=== PATIENT | male | born 1950 | race Caucasian/White ===

== ENCOUNTER → 2016-07-30 | Outpatient (CLI) | payer OTHER ==
--- NOTE | 2016-07-30 15:46 | US ---
EXAMINATION TYPE: US carotid duplex BILAT DATE OF EXAM: 07/30/2016 2:59 PM COMPARISON: Prior carotid ultrasound December 18, 2015 CLINICAL HISTORY: I50.9 CONGESTIVE HEART FAILURE. Stroke EXAM MEASUREMENTS: RIGHT: Peak Systolic Velocity (PSV) cm/sec ----- Right CCA: 61.6 ----- Right ICA: 96.5 ----- Right ECA: 100.6 ICA/CCA ratio: 1.6 RIGHT: End Diastole cm/sec ----- Right CCA: 12.7 ----- Right ICA: 27.1 ----- Right ECA: 11.3 LEFT: Peak Systolic Velocity (PSV) cm/sec ----- Left CCA: 65.0 ----- Left ICA: 100.9 ----- Left ECA: 196.5 ICA/CCA ratio: 1.6 LEFT: End Diastole cm/sec ----- Left CCA: 18.7 ----- Left ICA: 39.3 ----- Left ECA: 28.9 VERTEBRALS (direction of flow): Right Vertebral: Antegrade Left Vertebral: Antegrade TECHNOLOGIST IMPRESSION: Mild heterogeneous plaque seen with no significant stenosis Grayscale images redemonstrate mild to moderate eccentric hyperechoic plaque at bilateral carotid bul bs similar to prior exam, right more pronounced than left. Velocity measurements and ratios in visual ized portion of both internal carotid arteries is within normal limits. Increased peak systolic veloc ity left external carotid artery is redemonstrated. IMPRESSION: Mild to moderate atherosclerotic change redemonstrated bilaterally, no hemodynamically s ignificant stenosis is clearly seen in either internal carotid artery. No significant change from denise or ultrasound noted.
== END | disposition home or self-care (01) ==
LOC: RADUSWWP 14:27
PROVIDERS: ATTEND Family Medicine
DX: I65.23 Occlusion and stenosis of bilateral carotid arteries (principal)
CPT/HCPCS: 93880

== ENCOUNTER → 2017-02-11 | Outpatient (CLI) | payer MEDICARE, OTHER ==
[~2017-02-11] MED LIST: REGADENOSON 0.4 MG/5 ML SYRINGE IV ONE
--- NOTE | 2017-02-11 12:16 | NM ---
EXAMINATION TYPE: NM stress lexiscan cardiolite DATE OF EXAM: 02/11/2017 COMPARISON: NONE HISTORY: Precordial chest pain and abnormal EKG TECHNIQUE: After the intravenous administration of 10.2 mCi Tc 99m Sestamibi - Cardiolite resting SP ECT images acquired 53 minutes post injection. The patient received 0.4mg Lexiscan, 29.1 mCi Tc 99m Sestamibi - Stress images obtained [address] injection FINDINGS: Review of stress and rest SPECT images demonstrates moderate sized area of fixed defect cardiac apex compatible with prior ischemic insult. There is decreased perfusion involving the inferior wall which may be related to attenuation artifact or prior insult. No definite stress-induced ischemia seen at this time. Three-dimensional gated wall motion analysis demonstrates apical akinesia. Estimated eject ion fraction 40%. IMPRESSION: 1. Fixed insult as noted without evidence for stress-induced ischemia.
--- NOTE | 2017-02-11 19:52 | ECHOF ---
Referral Reason:R94.31 abn ekg MEASUREMENTS -------- HEIGHT: 177.8 cm WEIGHT: 64.4 kg BP: 158/72 RVIDd: 1.9 cm (< 3.3) IVSd: 0.9 cm (0.6 - 1.1) LVIDd: 5.3 cm (3.9 - 5.3) LVPWd: 1.0 cm (0.6 - 1.1) IVSs: 1.3 cm LVIDs: 3.9 cm LVPWs: 1.3 cm LAESV Index (A-L): 18.13 ml/m Ao Diam: 3.2 cm (2.0 - 3.7) AV Cusp: 2.0 cm (1.5 - 2.6) LA Diam: 3.1 cm (2.7 - 3.8) MV EXCURSION: 19.436 mm (> 18.000) MV EF SLOPE: 148 mm/s (70 - 150) EPSS: 2.0 cm MV E Wallace: 0.88 m/s MV DecT: 215 ms MV A Wallace: 0.97 m/s MV E/A Ratio: 0.90 RAP: 5.00 mmHg RVSP: 9.06 mmHg FINDINGS -------- Resting bradycardia (HR<60bpm). This was a technically adequate study. Overall left ventricular systolic function is mild-moderately impaired with, an EF between 40 - 45 %. Apical lateral LV wall motion is hypokinetic. Apical inferior LV wall motion is hypokinetic. Apical septum LV wall motion is hypokinetic. [place] Hypokinesis. Aortic valve is trileaflet and is mildly thickened. There is no evidence of aortic regurgitation. There is no evidence of aortic stenosis. The mitral valve leaflets are mildly thickened. Mild mitral annular calcification present. There is trace to mild mitral regurgitation. Trace tricuspid regurgitation present. There is no evidence of pulmonary hypertension. The right ventricular systolic pressure, as measured by Doppler, is 9.06mmHg. The pulmonic valve was not well visualized. The aortic root size is normal. The inferior vena cava is dilated with no significant inspiratory collapse which is consistent estimated right atrial pressure of >20 mmHg. The pericardium is normal. There is no pericardial effusion. CONCLUSIONS -------- 1. Resting bradycardia (HR<60bpm). 2. Mild mitral annular calcification present. 3. There is trace to mild mitral regurgitation. 4. Trace tricuspid regurgitation present. 5. There is no evidence of pulmonary hypertension. 6. The right ventricular systolic pressure, as measured by Doppler, is 9.06mmHg. 7. The pulmonic valve was not well visualized. 8. The aortic root size is normal. 9. The inferior vena cava is dilated with no significant inspiratory collapse which is consistent estimated right atrial pressure of >20 mmHg. 10. There is no pericardial effusion. 11. This was a technically adequate study. 12. Overall left ventricular systolic function is mild-moderately impaired with, an EF between 40 - 45 %. 13. Apical lateral LV wall motion is hypokinetic. 14. Apical inferior LV wall motion is hypokinetic. 15. Apical septum LV wall motion is hypokinetic. 16. [place] Hypokinesis. 17. Aortic valve is trileaflet and is mildly thickened. 18. The mitral valve leaflets are mildly thickened. POWER BALLAST MACHINE OPERATOR: Da Ahuja RDCS
--- NOTE | 2017-02-12 06:27 | EST ---
DATE OF SERVICE: TYPE OF REPORT: Lexiscan Cardiolite stress test INDICATION: Pre-eye surgery. BASELINE HEART RATE: 59 BASELINE BLOOD PRESSURE: 136/79 MAXIMUM HEART RATE: 84 MAXIMUM BLOOD PRESSURE: 141/92 85% MPHR: 100% MPHR: METS: MAX STAGE REACHED: TOTAL EXERCISE TIME: The test is being done to evaluate cardiac status. STRESS DATA: Baseline EKG showed sinus rhythm with normal CO interval and QRS duration with poor R wave progression in the anterior leads. Blood pressure at rest is 136/79 with a pulse rate of 59. A standard dose of Lexiscan was infused. EKGs taken during and after the infusion did not reveal any significant changes from the baseline. FINAL IMPRESSION: 1. Negative Lexiscan stress test. 2. Report on the nuclear images to be given by the radiologist. ALEXD
== END | disposition home or self-care (01) ==
LOC: RADNMMAIN 01-21 07:36
PROVIDERS: ATTEND Family Medicine
DX: R94.31 Abnormal electrocardiogram [ECG] [EKG] (principal)
CPT/HCPCS: 93017; 93306; 78452; A9500; J2785

== ENCOUNTER 2021-01-30 14:43 | Inpatient (IN) | payer MEDICARE ==
[2021-01-30] MEDS ORDERED: VANCOMYCIN IV PER PHARMACY 1 EACH MISC MISCELLANE PRN (15:09)
[2021-01-30] MEDS ORDERED: PIPERACILLIN-TAZOBACTAM 3.375 GM in SODIUM CHLORIDE 0.9% 100 ML IVPB STA (15:09)
[2021-01-30] MEDS ORDERED: ACETAMINOPHEN TAB 500 MG TAB PO STA (15:11)
[2021-01-30] MEDS ORDERED: IBUPROFEN 600 MG TAB PO STA (15:11)
--- NOTE | 2021-01-30 15:15 | ED ---
General Adult HPI - General Chief complaint: Extremity Injury, Lower Stated complaint: foot infection Time Seen by Provider: 01/30/21 14:50 Source: patient, RN notes reviewed, old records reviewed Mode of arrival: EMS Limitations: altered mental status, physical limitation - History of Present Illness Initial comments: This is a 71-year-old male who presents emergency complaining that he thinks he has infection in his right foot. Patient states about 5 days ago he had his big toe amputated and he eventually left the hospital AMA and went home. However he called his doctor and told him what was going on and his doctor wanted him to get back to the hospital immediately but he refused to go to [facility]. Patient states he does have a low-grade fever and the pain is getting worse. Patient states he has not looked at the amputated toe since the surgery. Patient denies any other problems at this time. Patient denies any headache patient denies any cough. Patient denies any chest pain difficulty breathing shortest breath per patient denies abdominal pain patient denies nausea vomiting diarrhea. Patient's main complaint is pain in the foot and a low-grade fever - Related Data Home Medications Medication Instructions Recorded Confirmed Gabapentin [Neurontin] 400 mg PO HS 03/28/16 03/28/16 lisinopriL [Zestril] 5 mg PO HS 03/28/16 03/28/16 metFORMIN HCL [Glucophage] 2,000 mg PO HS 03/28/16 03/28/16 Allergies Allergy/AdvReac Type Severity Reaction Status Date / Time No Known Allergies Allergy Verified 01/30/21 15:01 Review of Systems ROS Statement: Those systems with pertinent positive or pertinent negative responses have been documented in the HPI. ROS Other: All systems not noted in ROS Statement are negative. Past Medical History Past Medical History: CVA/TIA, Diabetes Mellitus Additional Past Medical History / Comment(s): neuropathy, TB 30 years ago, History of Any Multi-Drug Resistant Organisms: None Reported Past Surgical History: Appendectomy Additional Past Surgical History / Comment(s): fusion, right great toe am putation, Past Anesthesia/Blood Transfusion Reactions: No Reported Reaction Past Psychological History: Anxiety, Depression Smoking Status: Current every day smoker Past Alcohol Use History: None Reported Past Drug Use History: None Reported General Exam - General Exam Comments Initial Comments: GENERAL: Patient is well-developed and well-nourished. Patient is nontoxic and well- hydrated and is in mild distress. ENT: Neck is soft and supple. No significant lymphadenopathy is noted. Oropharynx is clear. Moist mucous membranes. Neck has full range of motion without eliciting any pain. EYES: The sclera were anicteric and conjunctiva were pink and moist. Extraocular movements were intact and pupils were equal round and reactive to light. Eyelids were unremarkable. PULMONARY: Unlabored respirations. Good breath sounds bilaterally. No audible rales rhonchi or wheezing was noted. CARDIOVASCULAR: There is a regular rate and rhythm without any murmurs gallops or rubs. ABDOMEN: Soft and nontender with normal bowel sounds. SKIN: Skin is clear with no lesions or rashes and otherwise unremarkable. NEUROLOGIC: Patient is alert and oriented x3. Cranial nerves II through XII are grossly intact. Motor and sensory are also intact. Normal speech, volume and content. Symmetrical smile. MUSCULOSKELETAL: Right foot is very erythematous warm and painful to touch the wound is swollen and not healing over. LYMPHATICS: No significant lymphadenopathy is noted PSYCHIATRIC: Normal psychiatric evaluation. Limitations: altered mental status, physical limitation Course Vital Signs 01/30/21 01/30/21 14:49 15:50 Temperature 100.6 F H Pulse Rate 94 93 Respiratory 18 18 Rate Blood Pressure 178/82 175/83 O2 Sat by Pulse 98 98 Oximetry Medical Decision Making - Medical Decision Making EKG shows normal sinus rhythm at 97 bpm CA interval is 142 QRS is 94 QT interval 350 QTC is 454. Patient's EKG shows no ST segment elevation or depression. X-ray of the foot cannot rule out possible it's. I started the patient Zosyn and vancomycin. I spoke with Dr. Royal Mendoza he agreed to admit the patient admitted the patient I wrote admitting orders I consulted Dr. Galloway he did surgery. - Lab Data Result diagrams: 01/30/21 15:19 01/30/21 15:19 Lab Results 01/30/21 01/30/21 01/30/21 Range/Units 15:19 15:19 15:19 WBC 9.9 (3.8-10.6) k/uL RBC 4.29 L (4.30-5.90) m/uL Hgb 11.9 L (13.0-17.5) gm/dL Hct 37.2 L (39.0-53.0) % MCV 86.8 (80.0-100.0) fL MCH 27.8 (25.0-35.0) pg MCHC 32.0 (31.0-37.0) g/dL RDW 13.3 (11.5-15.5) % Plt Count 301 (150-450) k/uL MPV 7.0 Neutrophils % 84 % Lymphocytes % 8 % Monocytes % 6 % Eosinophils % 0 % Basophils % 1 % Neutrophils # 8.3 H (1.3-7.7) k/uL Lymphocytes # 0.8 L (1.0-4.8) k/uL Monocytes # 0.6 (0-1.0) k/uL Eosinophils # 0.0 (0-0.7) k/uL Basophils # 0.1 (0-0.2) k/uL PT 10.7 (9.0-12.0) sec INR 1.0 (<1.2) APTT 23.8 (22.0-30.0) sec Sodium (137-145) mmol/L Potassium (3.5-5.1) mmol/L Chloride (98-107) mmol/L Carbon Dioxide (22-30) mmol/L Anion Gap mmol/L BUN (9-20) mg/dL Creatinine (0.66-1.25) mg/dL Est GFR (CKD-EPI)AfAm (>60 ml/min/1.73 sqM) Est GFR (CKD-EPI)NonAf (>60 ml/min/1.73 sqM) Glucose (74-99) mg/dL Plasma Lactic Acid Jarred (0.7-2.0) mmol/L Calcium (8.4-10.2) mg/dL Total Bilirubin (0.2-1.3) mg/dL AST (17-59) U/L ALT (4-49) U/L Alkaline Phosphatase (38-126) U/L Total Protein (6.3-8.2) g/dL Albumin (3.5-5.0) g/dL Urine Color Yellow Urine Appearance Clear (Clear) Urine pH 5.0 (5.0-8.0) Ur Specific [place] 1.010 (1.001-1.035) Urine Protein Trace H (Negative) Urine Glucose (UA) Negative (Negative) Urine Ketones 2+ H (Negative) Urine Blood Trace H (Negative) Urine Nitrite Negative (Negative) Urine Bilirubin Negative (Negative) Urine Urobilinogen <2.0 (<2.0) mg/dL Ur Leukocyte Esterase Negative (Negative) Urine RBC 1 (0-5) /hpf Urine WBC 1 (0-5) /hpf Ur Squamous Epith Cells <1 (0-4) /hpf Urine Mucus Rare H (None) /hpf 01/30/21 01/30/21 Range/Units 15:19 15:19 WBC (3.8-10.6) k/uL RBC (4.30-5.90) m/uL Hgb (13.0-17.5) gm/dL Hct (39.0-53.0) % MCV (80.0-100.0) fL MCH (25.0-35.0) pg MCHC (31.0-37.0) g/dL RDW (11.5-15.5) % Plt Count (150-450) k/uL MPV Neutrophils % % Lymphocytes % % Monocytes % % Eosinophils % % Basophils % % Neutrophils # (1.3-7.7) k/uL Lymphocytes # (1.0-4.8) k/uL Monocytes # (0-1.0) k/uL Eosinophils # (0-0.7) k/uL Basophils # (0-0.2) k/uL PT (9.0-12.0) sec INR (<1.2) APTT (22.0-30.0) sec Sodium 141 (137-145) mmol/L Potassium 3.7 (3.5-5.1) mmol/L Chloride 108 H (98-107) mmol/L Carbon Dioxide 23 (22-30) mmol/L Anion Gap 10 mmol/L BUN 10 (9-20) mg/dL Creatinine 1.09 (0.66-1.25) mg/dL Est GFR (CKD-EPI)AfAm 80 (>60 ml/min/1.73 sqM) Est GFR (CKD-EPI)NonAf 69 (>60 ml/min/1.73 sqM) Glucose 141 H (74-99) mg/dL Plasma Lactic Acid Jarred 0.9 (0.7-2.0) mmol/L Calcium 8.7 (8.4-10.2) mg/dL Total Bilirubin 0.7 (0.2-1.3) mg/dL AST 35 (17-59) U/L ALT 17 (4-49) U/L Alkaline Phosphatase 76 (38-126) U/L Total Protein 6.7 (6.3-8.2) g/dL Albumin 3.3 L (3.5-5.0) g/dL Urine Color Urine Appearance (Clear) Urine pH (5.0-8.0) Ur Specific [place] (1.001-1.035) Urine Protein (Negative) Urine Glucose (UA) (Negative) Urine Ketones (Negative) Urine Blood (Negative) Urine Nitrite (Negative) Urine Bilirubin (Negative) Urine Urobilinogen (<2.0) mg/dL Ur Leukocyte Esterase (Negative) Urine RBC (0-5) /hpf Urine WBC (0-5) /hpf Ur Squamous Epith Cells (0-4) /hpf Urine Mucus (None) /hpf Disposition Clinical Impression: Postoperative infection, Cellulitis of foot Disposition: ADMITTED IP TO THIS HOSP Referrals: Royal Mendoza MD [Primary Care Provider] - 1-2 days Time of Disposition: 16:18
[2021-01-30] MEDS: SODIUM CHLORIDE 0.9% 500 ML 500 ML IV SCH ×2 (15:16→17:24)
[2021-01-30] MEDS ORDERED: VANCOMYCIN 1,500 MG in SODIUM CHLORIDE 0.9% 250 ML IVPB STA (15:16)
[2021-01-30 15:36] LABS: Basophils # (A) 0.1 k/uL (0-0.2); Basophils % (A) 1 %; Eosinophils % (A) 0 %; HCT 37.2 % (39.0-53.0); HGB 11.9 gm/dL (13.0-17.5); Lymphocytes # (A) 0.8 k/uL (1.0-4.8); Lymphocytes % (A) 8 %; MCH 27.8 pg (25.0-35.0); MCV 86.8 fL (80.0-100.0); Monocytes # (A) 0.6 k/uL (0-1.0); Monocytes % (A) 6 %; Neutrophils # (A) 8.3 k/uL (1.3-7.7); Neutrophils % (A) 84 %; Platelet Count 301 k/uL (150-450); RBC 4.29 m/uL (4.30-5.90); RDW 13.3 % (11.5-15.5); WBC 9.9 k/uL (3.8-10.6)
[2021-01-30 15:39] LABS: Appearance,Urine Clear (Clear); Bilirubin,Urine Negative (Negative); Blood,Urine Trace (Negative); Color,Urine Yellow; Glucose,Urine (UA) Negative (Negative); Ketones,Urine 2+ (Negative); Leukocyte Esterase,Urine Negative (Negative); Mucus,Urine Rare /hpf; Nitrite,Urine Negative (Negative); Protein,Urine Trace (Negative); RBC,Urine 1 /hpf (0-5); Squamous Epithelial Cell,Urine <1 /hpf (0-4); Urobilinogen,Urine <2.0 mg/dL (<2.0); WBC,Urine 1 /hpf (0-5)
[2021-01-30 15:49] LABS: Albumin 3.3 g/dL (3.5-5.0); Calcium 8.7 mg/dL (8.4-10.2); Potassium 3.7 mmol/L (3.5-5.1); Total Bilirubin 0.7 mg/dL (0.2-1.3); Total Protein 6.7 g/dL (6.3-8.2)
--- NOTE | 2021-01-30 16:01 | XR ---
EXAMINATION TYPE: XR foot complete RT DATE OF EXAM: 01/30/2021 COMPARISON: NONE HISTORY: Right foot pain and swelling TECHNIQUE: Three views are submitted. FINDINGS: There is amputation of portions of the right first digit. Soft tissue edema noted in a slight ill-def inition of the medial cortex of the metatarsal head. Assessment of the distal margins of the remaining digits Limited due to positioning. Plantar calcanea l spur noted. No definite acute fracture or dislocation. Pression: 1. Soft tissue edema correlate for cellulitis. Early osteomyelitis involving the head of the first me tatarsal in the differential diagnosis.
[2021-01-30 16:02] LABS: Partial Thromboplastin Time 23.8 sec (22.0-30.0); Prothrombin Time 10.7 sec (9.0-12.0)
[2021-01-30] MEDS ORDERED: SODIUM CHLORIDE 0.9% 1,000 ML IV ONE (16:26)
[2021-01-30] MEDS ORDERED: lisinopriL 10 MG TAB PO STA (16:53)
[2021-01-30 20:31] LABS: Glucose,Whole Blood 140 mg/dL (75-99)
[2021-01-30 22:53] LABS: Glucose,Whole Blood 130 mg/dL (75-99)
[2021-01-31] MEDS: PIPERACILLIN-TAZOBACTAM 3.375 GM in SODIUM CHLORIDE 0.9% 100 ML IVPB SCH ×4 (00:03→23:25)
[2021-01-31] MEDS: ATORVASTATIN 40 MG TAB PO SCH ×2 (00:03→21:13)
[2021-01-31 01:06] LABS: Hemoglobin A1C 8.5 % (4.0-6.0)
[2021-01-31] MEDS: VANCOMYCIN 1,500 MG in SODIUM CHLORIDE 0.9% 250 ML IVPB SCH ×2 (04:56→17:25)
--- NOTE | 2021-01-31 06:08 | HP ---
HISTORY AND PHYSICAL HISTORY OF PRESENT ILLNESS: 71-year-old white male status post great toe amputation of the right foot. He signed out AMA from other hospital 2 days ago. He was supposed to get a PICC line with IV antibiotics. He has an open wound to the distal toe base site for where he had the amputation. His entire foot is red, swollen and warm. He needs to get a PICC line to get IV antibiotics going. IV antibiotics for about 4 to 6 weeks of physical therapy and medical conditioning at home or skilled nursing. Suspect he should go to a skilled nursing for care of his wound until it heals with a PICC line. MEDICATIONS: Home medicines: Neurontin 400 at night, Zestril 5 mg at night, metformin 2000 daily. ALLERGIES: Negative. REVIEW OF SYMPTOMS: 14 point review of systems negative except for mentioned in HPI. PAST MEDICAL HISTORY: CVA, TIA, diabetes mellitus, neuropathy. SURGERIES: Appendectomy, right great toe amputation, fusion. Anxiety, depression. SOCIAL HISTORY: Everyday smoker. No alcohol. No drugs. PHYSICAL EXAMINATION: Vital signs stable, afebrile. PSYCH: Fair mood and affect. NEUROLOGIC: Alert and orient x3. CARDIOVASCULAR: S1, S2. LUNGS: Clear. GI soft. Left foot great toe is removed. The base of the toe has a mild opening yellow exudative area on the distal base of the great toe. Has redness and swelling to the distal foot wound to the mid foot. HEMATOLOGY: Negative Homans. LABORATORY DATA: White count 9.9, hemoglobin is 9.9, BUN 10, creatinine 1.09, albumin is 3.3. ASSESSMENT: Postoperative infection, cellulitis of the foot, open wound to the distal stump of the great toe base, cellulitis. PROGNOSIS: Guarded. CONDITION: Stable. Ambulate as tolerated. He will need a PICC line and home IV antibiotics for [address] Silva consult as well as vascular. MMODL / IJN: [id number] /
[2021-01-31 07:21] LABS: Glucose,Whole Blood 170 mg/dL (75-99)
[2021-01-31 07:52] LABS: Basophils # (A) 0.1 k/uL (0-0.2); Basophils % (A) 1 %; Eosinophils # (A) 0.2 k/uL (0-0.7); Eosinophils % (A) 2 %; HCT 37.2 % (39.0-53.0); HGB 11.8 gm/dL (13.0-17.5); Lymphocytes % (A) 13 %; MCH 28.1 pg (25.0-35.0); MCHC 31.7 g/dL (31.0-37.0); MCV 88.7 fL (80.0-100.0); Mean Platelet Volume 7.5; Monocytes # (A) 0.6 k/uL (0-1.0); Monocytes % (A) 7 %; Neutrophils # (A) 6.2 k/uL (1.3-7.7); Neutrophils % (A) 76 %; Platelet Count 307 k/uL (150-450); RDW 13.5 % (11.5-15.5); WBC 8.2 k/uL (3.8-10.6)
[2021-01-31] MEDS: lisinopriL 10 MG TAB PO SCH ×2 (08:05→21:14)
[2021-01-31 11:31] LABS: Albumin 3.4 g/dL (3.80-4.90); Albumin/Globulin Ratio 1.13 (1.60-3.17); Anion Gap 9.8 mmol/L (4.00-12.00); BUN/Creat Ratio 9.09 Ratio (12.00-20.00); Calcium 8.1 mg/dL (8.7-10.3); Carbon Dioxide 26.2 mmol/L (21.6-31.8); Non-African American GFR(CKD) 68.1 (60.0-200.0); Potassium 3.5 mmol/L (3.5-5.5); Total Bilirubin 0.4 mg/dL (0.3-1.2); Total Protein 6.4 g/dL (6.2-8.2)
[2021-01-31 11:56] LABS: Glucose,Whole Blood 179 mg/dL (75-99)
[2021-01-31] MEDS: INSULIN ASPART (NovoLOG) 100 UNIT/ML VIAL SQ SCH ×3 (13:29→21:14)
[2021-01-31 13:31] VITALS: BMI 25.2
[2021-01-31] MEDS: MORPHINE SULFATE 2 MG/ML SYRINGE IVP PRN ×2 (13:33→17:24)
[2021-01-31 17:25] LABS: Glucose,Whole Blood 210 mg/dL (75-99)
[2021-01-31 20:05] LABS: Glucose,Whole Blood 96 mg/dL (75-99)
--- NOTE | 2021-01-31 21:34 | P.CONS ---
History of Present Illness - Reason for Consult Consult date: 01/31/21 right foot infection Requesting physician: Royal Mendoza - Chief Complaint right foot pain and redness x few days - History of Present Illness Patient is a 63-year male with a past medical he significant for diabetes mellitus patient was recently admitted at [facility] for right big toe diabetic foot infection with underlying osteomyelitis patient was evaluated by vascular surgery and the patient is status post right big toe amputation unfortunately the patient left AMA the very next day patient was subsequently called by his primary care physician and advised to come to the [facility] ER for evaluation admission patient presenting to the ER yesterday patient has been complaining of pain to the right big toe imitation site to be throbbing intensity almost 7-8 out of 10 no radiation patient denies having any drainage from it patient denies any high-grade fever or chills on presentation the hospital patient had fever 100.6 degree for height patient did have a normal white count with a sed rate of 16 creatinine was normal blood cultures and local culture has been obtained patient did have x-rays of the right foot which was soft tissue edema correlate for cellulitis osteomyelitis involving the first metatarsal head and the differential diagnosis patient was started on Zosyn and vancomycin infectious disease was consulted for further management of antibiotic therapy Review of Systems Positive point has been mentioned in HPI rest of the systems are negative Past Medical History Past Medical History: CVA/TIA, Diabetes Mellitus Additional Past Medical History / Comment(s): neuropathy, TB 30 years ago, History of Any Multi-Drug Resistant Organisms: None Reported Past Surgical History: Appendectomy, Back Surgery Additional Past Surgical History / Comment(s): fusion, right great toe amputation, Past Anesthesia/Blood Transfusion Reactions: No Reported Reaction Past Psychological History: Anxiety, Depression Smoking Status: Current every day smoker Past Alcohol Use History: None Reported Past Drug Use History: Marijuana Medications and Allergies Home Medications Medication Instructions Recorded Confirmed Type Amoxicillin/Potassium Clav 1 tab PO BID 01/30/21 01/30/21 History [Augmentin 875-125 Tablet] Atorvastatin [Lipitor] 40 mg PO HS 01/30/21 01/30/21 History lisinopriL 10 mg PO BID 01/30/21 01/30/21 History metFORMIN HCL [Glucophage] 1,000 mg PO BID 01/30/21 01/30/21 History Allergies Allergy/AdvReac Type Severity Reaction Status Date / Time No Known Allergies Allergy Verified 01/30/21 16:55 Physical Exam Vitals: Vital Signs Temp Pulse Resp BP Pulse Ox 01/31/21 20:14 97.5 F L 68 20 148/80 95 01/31/21 12:43 97.7 F 57 L 22 157/68 98 01/31/21 05:00 98.1 F 60 20 167/68 96 Intake and Output 01/31/21 01/31/21 01/31/21 06:59 14:59 22:59 Intake Total 1200 480 Output Total 200 Balance 1200 280 Intake: Intake, IV Titration 700 Amount Piperacillin-Tazobactam 3 100 .375 gm In Sodium Chloride 0.9% 100 ml @ 25 mls/hr IVPB Q8HR [facility] Rx# :[id number] Sodium Chloride 0.9% 1, 350 000 ml @ 75 mls/hr IV . [id number] ONE Rx#:[id number] Vancomycin 1,500 mg In 250 Sodium Chloride 0.9% 250 ml @ 125 mls/hr IVPB Q12H [facility] Rx#:[id number] Oral 500 480 Output: Urine 200 Other: Voiding Method Toilet Toilet Urinal # Voids 2 3 # Bowel Movements 1 3 Weight 79.832 kg GENERAL DESCRIPTION: Elderly male lying in bed, no distress. No tachypnea or accessory muscle of respiration use. HEENT: Shows Pallor , no scleral icterus. Oral mucous membrane is dry. NECK: Trachea central, no thyromegaly. LUNGS: Unlabored breathing. Clear to auscultation anteriorly. No wheeze or crackle. HEART: S1, S2, regular rate and rhythm. ABDOMEN: Soft, no tenderness , guarding or rigidity EXTREMITIES: No edema of feet. Right foot big toe amputation site did have swelling or redness with redness extending to the dorsum of the right foot no foul-smelling drainage SKIN: No rash, no masses palpable. NEUROLOGICAL: The patient is awake, alert, oriented x3, mood and affect normal. Results CBC & Chem 7: 01/31/21 06:33 01/31/21 06:33 Labs: Abnormal Lab Results - Last 24 Hours (Table) 01/30/21 01/30/21 01/31/21 Range/Units 15:19 22:50 06:33 RBC (4.30-5.90) m/uL Hgb (13.0-17.5) gm/dL Hct (39.0-53.0) % ESR 60 H (0-20) mm/Hr BUN/Creatinine Ratio (12.00-20.00) Ratio Glucose (70-110) mg/dL POC Glucose (mg/dL) 130 H (75-99) mg/dL Hemoglobin A1c 8.5 H (4.0-6.0) % Calcium (8.7-10.3) mg/dL AST (14-35) U/L Albumin (3.80-4.90) g/dL Albumin/Globulin Ratio (1.60-3.17) g/dL 01/31/21 01/31/21 01/31/21 Range/Units 06:33 06:33 07:19 RBC 4.20 L (4.30-5.90) m/uL Hgb 11.8 L (13.0-17.5) gm/dL Hct 37.2 L (39.0-53.0) % ESR (0-20) mm/Hr BUN/Creatinine Ratio 9.09 L (12.00-20.00) Ratio Glucose 164 H (70-110) mg/dL POC Glucose (mg/dL) 170 H (75-99) mg/dL Hemoglobin A1c (4.0-6.0) % Calcium 8.1 L (8.7-10.3) mg/dL AST 38 H (14-35) U/L Albumin 3.40 L (3.80-4.90) g/dL Albumin/Globulin Ratio 1.13 L (1.60-3.17) g/dL 01/31/21 01/31/21 Range/Units 11:54 17:23 RBC (4.30-5.90) m/uL Hgb (13.0-17.5) gm/dL Hct (39.0-53.0) % ESR (0-20) mm/Hr BUN/Creatinine Ratio (12.00-20.00) Ratio Glucose (70-110) mg/dL POC Glucose (mg/dL) 179 H 210 H (75-99) mg/dL Hemoglobin A1c (4.0-6.0) % Calcium (8.7-10.3) mg/dL AST (14-35) U/L Albumin (3.80-4.90) g/dL Albumin/Globulin Ratio (1.60-3.17) g/dL Microbiology - Last 24 Hours (Table) 01/30/21 15:19 Gram Stain - Preliminary Foot - Right Wound Culture - Preliminary 01/30/21 15:19 Blood Culture - Preliminary Blood No Growth after 24 hours 01/30/21 15:19 Blood Culture - Preliminary Blood No Growth after 24 hours Assessment and Plan Assessment: 1-patient with right diabetic foot infection in this patient who did have wet gangrene and osteomyelitis of his right great toe status post amputation unfortunately the patient has left AGAINST MEDICAL ADVICE on the other facility now presents to the hospital with worsening pain swelling and fever in this patient did have significant inflammatory change and the right great amputation site and concern for underlying osteomyelitis (1) Foot osteomyelitis, right Current Visit: Yes Status: Acute Code(s): M86.9 - OSTEOMYELITIS, UNSPECIFIED SNOMED Code(s): 5972355472709008 (2) Diabetic infection of right foot Current Visit: Yes Status: Acute Code(s): E11.628 - TYPE 2 DIABETES MELLITUS WITH OTHER SKIN COMPLICATIONS; L08.9 - LOCAL INFECTION OF THE SKIN AND SUBCUTANEOUS TISSUE, UNSP SNOMED Code(s): 38745717 Plan: 1-vancomycin pharmacy to dose her with a target trough of 15 while watching her kidney function and Vanco trough closely. 2-discontinue Zosyn 3-start the patient on Unasyn 3 g every 6 hours 4-patient will likely need PICC line and outpatient IV antibiotic therapy We will follow on clinical condition and cultures to further adjust medication if needed Thank you for this consultation we will follow the patient along with you Time with Patient: Greater than 30
[2021-02-01] MEDS: VANCOMYCIN 1,500 MG in SODIUM CHLORIDE 0.9% 250 ML IVPB SCH (04:41)
[2021-02-01] MEDS: MORPHINE SULFATE 2 MG/ML SYRINGE IVP PRN ×4 (04:44→15:47)
--- NOTE | 2021-02-01 06:26 | PN ---
PROGRESS NOTE 63-year-old white male who is seen by vascular surgery as well as Infectious Disease. Surgery did a PICC line for outpatient antibiotics. Dr. Silva saw him. He is sleeping comfortably in bed. He is on vancomycin and Zosyn. Cardiovascular S1, S2. Lungs clear. GI soft. Hematology negative Homans. Psych: Fair mood and affect. ASSESSMENT: 1. Diabetic wound infection status post toe amputation of the right foot. 2. Diabetic infection, wet gangrene. 3. Osteomyelitis. 4. Status post right great toe amputation concern for osteomyelitis. PROGNOSIS: Guarded. Broad-spectrum antibiotics will have to be set up. Vancomycin will have to be continued. Zosyn stopped. Unasyn started. So Unasyn and vancomycin continue, continue PICC line. Home IV antibiotics will have to be set up. He wants home healthcare. Condition stable. Prognosis guarded. MMODL / IJN: [id number] /
[2021-02-01 07:17] LABS: Glucose,Whole Blood 99 mg/dL (75-99)
[2021-02-01] MEDS: INSULIN ASPART (NovoLOG) 100 UNIT/ML VIAL SQ SCH ×4 (07:24→20:03)
[2021-02-01] MEDS: PIPERACILLIN-TAZOBACTAM 3.375 GM in SODIUM CHLORIDE 0.9% 100 ML IVPB SCH ×2 (08:01→15:22)
[2021-02-01] MEDS: lisinopriL 10 MG TAB PO SCH ×2 (08:01→20:02)
[2021-02-01 12:15] LABS: Glucose,Whole Blood 133 mg/dL (75-99)
[2021-02-01] MEDS ORDERED: VANCOMYCIN TROUGH DUE 1 EACH MISC MISCELLANE ONE (16:00)
--- NOTE | 2021-02-01 16:05 | P.GSCN ---
History of Present Illness History of present illness: 71-year-old diabetic male patient came to [facility] with wet gangrene of the big toe patient went for amputation and IV antibiotic. Next a patient went AGAINST MEDICAL ADVICE he has been admitted to [facility] I was consulted for further evaluation. Patient was advised to be nonweightbearing patient came to the ER with dehiscence of the wound of the mid incision site Medical history history of diabetes Personal history history of smoking On examination neck is supple no bruit appreciated n pedis chest first and second sound normal abdomen Abdomen soft nontender Vascular examination femorals are 2+ dorsal pedis 1+ wound instructions incision in the mid has dehiscence Plan is we'll take the stitches out and excess silver to the wound and IV antibiotic follow with you Past Medical History Past Medical History: CVA/TIA, Diabetes Mellitus Additional Past Medical History / Comment(s): neuropathy, TB 30 years ago, History of Any Multi-Drug Resistant Organisms: None Reported Past Surgical History: Appendectomy, Back Surgery Additional Past Surgical History / Comment(s): fusion, right great toe amputation, Past Anesthesia/Blood Transfusion Reactions: No Reported Reaction Past Psychological History: Anxiety, Depression Smoking Status: Current every day smoker Past Alcohol Use History: None Reported Past Drug Use History: Marijuana Medications and Allergies Home Medications Medication Instructions Recorded Confirmed Type Amoxicillin/Potassium Clav 1 tab PO BID 01/30/21 01/30/21 History [Augmentin 875-125 Tablet] Atorvastatin [Lipitor] 40 mg PO HS 01/30/21 01/30/21 History lisinopriL 10 mg PO BID 01/30/21 01/30/21 History metFORMIN HCL [Glucophage] 1,000 mg PO BID 01/30/21 01/30/21 History Allergies Allergy/AdvReac Type Severity Reaction Status Date / Time No Known Allergies Allergy Verified 01/30/21 16:55 Surgical - Exam Vital Signs Temp Pulse Resp BP Pulse Ox 100.6 F H 94 18 178/82 98 01/30/21 14:49 01/30/21 14:49 01/30/21 14:49 01/30/21 14:49 01/30/21 14:49 Results - Labs 01/31/21 06:33 02/01/21 05:53 Abnormal Lab Results - Last 24 Hours (Table) 01/31/21 02/01/21 Range/Units 17:23 12:13 POC Glucose (mg/dL) 210 H 133 H (75-99) mg/dL Microbiology - Last 24 Hours (Table) 01/30/21 15:19 Gram Stain - Preliminary Foot - Right Wound Culture - Preliminary 01/30/21 15:19 Blood Culture - Preliminary Blood No Growth after 24 hours 01/30/21 15:19 Blood Culture - Preliminary Blood No Growth after 24 hours Diabetes panel 02/01/21 Range/Units 05:53 Creatinine 1.04 (0.66-1.25) mg/dL Pituitary panel 02/01/21 Range/Units 05:53 Creatinine 1.04 (0.66-1.25) mg/dL Adrenal panel 02/01/21 Range/Units 05:53 Creatinine 1.04 (0.66-1.25) mg/dL
[2021-02-01 17:05] LABS: Glucose,Whole Blood 164 mg/dL (75-99)
[2021-02-01] MEDS: DOCUSATE 100 MG CAP PO SCH (19:15)
[2021-02-01] MEDS: ATORVASTATIN 40 MG TAB PO SCH (20:02)
[2021-02-01] MEDS: ZOLPIDEM 5 MG TAB PO PRN (20:02)
[2021-02-01 21:41] LABS: Glucose,Whole Blood 160 mg/dL (75-99)
--- NOTE | 2021-02-01 22:21 | PN ---
PROGRESS NOTE DATE OF SERVICE: 02/01/2021 REASON FOR FOLLOWUP: Right big toe diabetic foot infection with underlying osteomyelitis. INTERVAL HISTORY: Patient is afebrile, has been breathing comfortably. The pain to the right big toe amputation site is currently controlled. No chest pain, shortness of breath or cough. No abdominal pain. No diarrhea. PHYSICAL EXAMINATION: Blood pressure 162/71 with pulse of 72. Temperature is 98.7. He is 98% on room air. General description is an elderly male lying in bed in no distress. Respiratory system: Unlabored breathing, clear to auscultation anteriorly. Heart S1, S2. Regular rate and rhythm. Abdomen soft, no tenderness. Right foot is currently dressed. No obvious drainage on the dressing. LABS: Vanco trough slightly elevated at 5.6. Culture so far negative. Blood culture negative. DIAGNOSTIC IMPRESSION AND PLAN: Patient with right big toe osteomyelitis in this patient status post right big toe amputation. The patient did have significant cellulitis of the right foot and a component of osteomyelitis. Cultures were done at [facility] positive for oxacillin resistant Staph epi. is covered with Unasyn. Vancomycin discontinued. Patient will need a PICC line for outpatient antibiotics. Continue supportive care. MMODL / IJN: [id number] /
--- NOTE | 2021-02-01 23:36 | PN ---
PROGRESS NOTE Remains on NovoLog, Accu-Chek protocol, broad-spectrum antibiotics and Zosyn. CARDIOVASCULAR: S1, S2. Lungs clear. GI soft. Extremities: Bandaged wound. Sugars in the mid 100s. Plan is to continue with broad-spectrum IV antibiotics. He has oxacillin resistant Staph epidermidis scar with Unasyn. He will need a PICC line for outpatient antibiotics. Wait for fdc care or home IV antibiotics set up. MMODL / IJN: [id number] /
[2021-02-02 00:10] LABS: Appearance,Urine Clear (Clear); Bilirubin,Urine Negative (Negative); Blood,Urine Negative (Negative); Color,Urine Yellow; Glucose,Urine (UA) Negative (Negative); Ketones,Urine 1+ (Negative); Leukocyte Esterase,Urine Negative (Negative); Nitrite,Urine Negative (Negative); Protein,Urine Negative (Negative); Specific Gravity,Urine 1.014 (1.001-1.035); Urobilinogen,Urine <2.0 mg/dL (<2.0)
[2021-02-02] MEDS: AMPICILLIN-SULBACTAM 3 GM in SODIUM CHLORIDE 0.9% 100 ML IVPB SCH ×4 (00:39→17:28)
[2021-02-02] MEDS ORDERED: VANCOMYCIN 1,500 MG in SODIUM CHLORIDE 0.9% 250 ML IVPB SCH (06:00)
[2021-02-02] MEDS: hydrALAZINE HCL 20 MG/ML 1 ML VIAL IVP PRN (06:05)
[2021-02-02 06:18] LABS: Basophils % (A) 0 %; Eosinophils # (A) 0.1 k/uL (0-0.7); Eosinophils % (A) 1 %; HCT 33.3 % (39.0-53.0); Lymphocytes % (A) 9 %; MCH 28.5 pg (25.0-35.0); MCV 86.3 fL (80.0-100.0); Mean Platelet Volume 6.6; Monocytes # (A) 0.6 k/uL (0-1.0); Monocytes % (A) 6 %; Neutrophils # (A) 8.5 k/uL (1.3-7.7); Neutrophils % (A) 81 %; Platelet Count 302 k/uL (150-450); RBC 3.86 m/uL (4.30-5.90); RDW 13.8 % (11.5-15.5); WBC 10.4 k/uL (3.8-10.6)
[2021-02-02 06:42] LABS: ALT 24 U/L (4-49); AST 42 U/L (17-59); African American GFR (CKD) 74 (>60 ml/min/1.73 sqM); Albumin 2.8 g/dL (3.5-5.0); Albumin/Globulin Ratio 0.8; Alkaline Phosphatase 55 U/L (38-126); Anion Gap 7 mmol/L; Blood Urea Nitrogen 9 mg/dL (9-20); Carbon Dioxide 23 mmol/L (22-30); Chloride 114 mmol/L (98-107); Globulin 3.3 g/dL; Glucose 132 mg/dL (74-99); Non-African American GFR(CKD) 64 (>60 ml/min/1.73 sqM); Potassium 3.6 mmol/L (3.5-5.1); Sodium 144 mmol/L (137-145); Total Bilirubin 0.5 mg/dL (0.2-1.3); Total Protein 6.1 g/dL (6.3-8.2)
[2021-02-02 07:23] LABS: Glucose,Whole Blood 130 mg/dL (75-99)
[2021-02-02] MEDS: INSULIN ASPART (NovoLOG) 100 UNIT/ML VIAL SQ SCH ×4 (07:56→21:26)
[2021-02-02] MEDS: MORPHINE SULFATE 2 MG/ML SYRINGE IVP PRN ×2 (07:57→19:29)
[2021-02-02] MEDS: lisinopriL 10 MG TAB PO SCH ×2 (07:57→21:25)
[2021-02-02] MEDS: DOCUSATE 100 MG CAP PO SCH ×2 (07:57→21:27)
[2021-02-02 11:30] LABS: Glucose,Whole Blood 207 mg/dL (75-99)
[2021-02-02] MEDS: metFORMIN 500 MG TAB PO SCH ×2 (12:29→21:25)
[2021-02-02] MEDS: MAGNESIUM HYDROXIDE 2,400 MG/10 ML CUP PO PRN (14:10)
[2021-02-02] MEDS ORDERED: LIDOCAINE 1% INJ 10MG/ML (20 ML MDV) ONE (14:34)
--- NOTE | 2021-02-02 15:43 | PN ---
PROGRESS NOTE The patient is admitted with diabetic foot infection, severe osteomyelitis of the foot where he had wet gangrene of the big toe which was amputated last week. He was admitted for broad-spectrum antibiotics after signing out AMA from the other hospital. Dr. Silva recommended broad-spectrum antibiotics. Cultures are pending. Dr. Galloway is taking the stitches out. He is going to get silver to the wound. IV antibiotics. PROGNOSIS: Guarded. Diabetic control has been given. Cardiovascular S1-S2. Lungs clear. GI is soft. Hematology negative Josiane's. Start him back on his metformin at this time. Continue with Zosyn. Prognosis is guarded. Follow up in next 24 to 48 hours for possible discharge with home IV antibiotics. MMODL / IJN: [id number] /
[2021-02-02 17:11] LABS: Glucose,Whole Blood 132 mg/dL (75-99)
[2021-02-02] MEDS: TAMSULOSIN 0.4 MG CAP.ER.24H PO SCH (17:28)
--- NOTE | 2021-02-02 19:30 | PN ---
PROGRESS NOTE DATE OF SERVICE: 02/02/2021 REASON FOR FOLLOWUP: Right diabetic foot infection with dehiscence of the wound. INTERVAL HISTORY: The patient is afebrile. The patient is breathing comfortably. The patient is feeling better and wants to go home. No chest pain, shortness of breath or cough. No abdominal pain or diarrhea. PHYSICAL EXAMINATION: Blood pressure is 168/71, pulse of 70, temperature 98.2. He is 95% on room air. GENERAL DESCRIPTION: General description is an elderly male up in the bed in no distress. RESPIRATORY SYSTEM: Unlabored breathing. Clear to auscultation anteriorly. HEART: S1, S2. Regular rate and rhythm. ABDOMEN: Soft. No tenderness. Right foot is currently dressed. No drainage on the dressing. LABS: Hemoglobin is 11, white count 10.4, BUN of 9, creatinine 1.16. DIAGNOSTIC IMPRESSION AND PLAN: Patient with right big toe diabetic foot infection, status post amputation of right big toe. Subsequently the patient left AGAINST MEDICAL ADVICE. He presented to hospital now with wound infection and dehiscence of the wound, status post removal of the osmin, and the wound has been drained. Culture has been obtained that will be followed. Continue with the Unasyn. He will need a PICC line for outpatient antibiotics and close outpatient followup. MMODL / IJN: [id number] /
[2021-02-02 20:50] LABS: Glucose,Whole Blood 182 mg/dL (75-99)
[2021-02-02] MEDS: ATORVASTATIN 40 MG TAB PO SCH (21:25)
[2021-02-02] MEDS: ZOLPIDEM 5 MG TAB PO PRN (21:25)
[2021-02-03] MEDS: AMPICILLIN-SULBACTAM 3 GM in SODIUM CHLORIDE 0.9% 100 ML IVPB SCH ×5 (01:14→23:45)
[2021-02-03] MEDS: MORPHINE SULFATE 2 MG/ML SYRINGE IVP PRN ×2 (04:23→21:22)
[2021-02-03 07:40] LABS: Glucose,Whole Blood 148 mg/dL (75-99)
[2021-02-03] MEDS: INSULIN ASPART (NovoLOG) 100 UNIT/ML VIAL SQ SCH ×4 (08:09→21:22)
[2021-02-03] MEDS: metFORMIN 500 MG TAB PO SCH ×2 (08:09→21:22)
[2021-02-03] MEDS: lisinopriL 10 MG TAB PO SCH ×2 (08:09→21:22)
[2021-02-03] MEDS: DOCUSATE 100 MG CAP PO SCH ×2 (08:09→21:22)
--- NOTE | 2021-02-03 09:50 | PN ---
PROGRESS NOTE This is a 71-year-old gentleman who had right big toe amputation done for wet gangrene of the big toe. The patient has been readmitted to [facility] and we removed the sutures from the skin site which was dehisced. The culture is pending. Slight redness noted along the incision site. No discharge noted at this point. We have cleaned the wound and applied Aquacel Silver. PLAN: The plan is on IV antibiotic under the care of Infectious Disease. Non-weightbearing. If the patient goes home, I would like to see him next week in my office Friday or . The patient will need a home nurse to change the dressing every 48 hours. If the patient does not go home over the weekend, I will follow him on Friday. MARION / DORCAS: [id number] /
[2021-02-03] MEDS: MAGNESIUM HYDROXIDE 2,400 MG/10 ML CUP PO PRN (11:15)
[2021-02-03 12:12] LABS: Glucose,Whole Blood 136 mg/dL (75-99)
[2021-02-03 17:23] LABS: Glucose,Whole Blood 169 mg/dL (75-99)
[2021-02-03] MEDS: TAMSULOSIN 0.4 MG CAP.ER.24H PO SCH (17:59)
--- NOTE | 2021-02-03 19:39 | PN ---
PROGRESS NOTE DATE OF SERVICE: 02/03/2021 REASON FOR FOLLOWUP: Right great toe diabetic foot infection with underlying osteomyelitis. INTERVAL HISTORY: The patient is currently afebrile. The patient is breathing comfortably. Denies having any chest pain or cough. No abdominal pain. No worsening pain to the right foot area. PHYSICAL EXAMINATION: On examination, blood pressure 178/73 with a pulse of 55, temperature 97.9. He is 95% on room air. GENERAL DESCRIPTION: General description is an elderly male lying in bed in no distress. RESPIRATORY SYSTEM: Unlabored breathing. Clear to auscultation anteriorly. HEART: S1, S2. Regular rate and rhythm. ABDOMEN: Soft. No tenderness. Right foot is currently dressed. No drainage on the dressing. LABS: Repeat local cultures are currently pending. DIAGNOSTIC IMPRESSION AND PLAN: Patient with a right big toe diabetic foot infection, status post amputation of the right big toe. The patient's subsequently left AMA and is now admitted to hospital with dehiscence of the wound. Culture repeat has been negative so far. Patient to continue with Unasyn. Waiting for placement for outpatient antibiotic and local care. Continue supportive care. MMODL / IJN: [id number] /
[2021-02-03 20:54] LABS: Glucose,Whole Blood 148 mg/dL (75-99)
[2021-02-03] MEDS: ZOLPIDEM 5 MG TAB PO PRN (21:22)
[2021-02-03] MEDS: ATORVASTATIN 40 MG TAB PO SCH (21:22)
[2021-02-04] MEDS: MAGNESIUM HYDROXIDE 2,400 MG/10 ML CUP PO PRN ×2 (03:40→15:30)
[2021-02-04] MEDS: MORPHINE SULFATE 2 MG/ML SYRINGE IVP PRN ×3 (03:46→19:48)
[2021-02-04] MEDS: hydrALAZINE HCL 20 MG/ML 1 ML VIAL IVP PRN (04:08)
[2021-02-04] MEDS: AMPICILLIN-SULBACTAM 3 GM in SODIUM CHLORIDE 0.9% 100 ML IVPB SCH ×4 (05:53→23:23)
[2021-02-04] MEDS: lisinopriL 10 MG TAB PO SCH (05:53)
[2021-02-04 07:20] LABS: Glucose,Whole Blood 135 mg/dL (75-99)
[2021-02-04] MEDS: INSULIN ASPART (NovoLOG) 100 UNIT/ML VIAL SQ SCH ×4 (07:28→21:02)
[2021-02-04] MEDS ORDERED: FUROSEMIDE 10 MG/ML 2 ML VIAL IV ONE (10:11)
[2021-02-04] MEDS ORDERED: lisinopriL 10 MG TAB PO STA (10:14)
[2021-02-04] MEDS: DOCUSATE 100 MG CAP PO SCH ×2 (10:26→21:01)
[2021-02-04] MEDS: metFORMIN 500 MG TAB PO SCH ×2 (10:26→21:01)
[2021-02-04] MEDS: amLODIPine 5 MG TAB PO SCH (10:26)
[2021-02-04] MEDS: IPRATROPIUM-ALBUTEROL 3 ML NEB INHALATION SCH ×4 (10:49→23:38)
--- NOTE | 2021-02-04 11:07 | PN ---
PROGRESS NOTE DATE OF SERVICE: 02/03/2021 [age]old white male examined on 02/03/21. He remains on broad-spectrum antibiotics. We started him on metformin for his diabetes mellitus, Flomax for urinary retention plus urinary catheter placement, status post debridement of the right foot for diabetic wound infection. Blood pressure is a little bit high. We are going to give him hydralazine p.r.n. CARDIOVASCULAR: S1, S2. LUNGS: Scattered rales at the base. HEMATOLOGY: Negative Homans. PSYCH: Fair mood and affect. NEUROLOGIC: Alert and oriented x3. ASSESSMENT: 1. Hypertension acceleration. 2. Status post debridement amputation of the right foot great toe diabetic wound infection. 3. Osteomyelitis of the right foot. Hydralazine p.r.n. Continue broad-spectrum antibiotics. He needs IV antibiotics in the halfway for up to 4-6 weeks. MMODL / IJN: [id number] /
--- NOTE | 2021-02-04 11:42 | XR ---
EXAMINATION TYPE: XR chest 2V DATE OF EXAM: 02/04/2021 COMPARISON: 03/28/2016 HISTORY: 71 years Male. STUDY INDICATION GIVEN: Dyspnea . TECHNIQUE: Frontal and lateral chest radiographs FINDINGS AND IMPRESSION: Right asymmetric hyperinflation which could be on the basis of patient rotation. Left upper extremity PICC tip at the cavoatrial junction. Left lower lobe opacity could be on the basis of mild subsegmental atelectasis or developing pneumoni a. Trace left pleural effusion. No pneumothorax. Normal cardiomediastinal silhouette. No acute osseous abnormality.
[2021-02-04 11:47] LABS: Glucose,Whole Blood 211 mg/dL (75-99)
[2021-02-04] MEDS: TAMSULOSIN 0.4 MG CAP.ER.24H PO SCH (17:00)
[2021-02-04 17:33] LABS: Glucose,Whole Blood 161 mg/dL (75-99)
--- NOTE | 2021-02-04 19:05 | PN ---
PROGRESS NOTE DATE OF SERVICE: 02/04/2021 REASON FOR FOLLOWUP: Right diabetic foot infection with underlying osteomyelitis. INTERVAL HISTORY: The patient is afebrile. The patient is breathing comfortably. No chest pain, shortness of breath or cough. No abdominal pain or any worsening pain in the right foot. PHYSICAL EXAMINATION: Blood pressure 148/80 with a pulse of 73, temperature 98.1. He is 95% on room air. General description is an elderly male up in the room in no distress. Respiratory system: Unlabored breathing, clear to auscultation anteriorly. Heart S1, S2. Regular rate and rhythm. Abdomen soft, no tenderness. The right foot is currently dressed. No drainage on the dressing. LABS: No new labs have been obtained today. Culture has been negative so far. DIAGNOSTIC IMPRESSION AND PLAN: Patient with right diabetic foot infection, status post amputation right big toe. Culture has been negative so far. Culture done at the other facility was Staph epi, oxacillin sensitive. Patient is covered with Unasyn. He will get a PICC line and at least 4-6 weeks of IV antibiotic and local wound care. Continue supportive care. MMODL / IJN: [id number] /
[2021-02-04] MEDS: ZOLPIDEM 5 MG TAB PO PRN (19:48)
[2021-02-04 20:49] LABS: Glucose,Whole Blood 170 mg/dL (75-99)
[2021-02-04] MEDS: ATORVASTATIN 40 MG TAB PO SCH (21:01)
[2021-02-05] MEDS: MORPHINE SULFATE 2 MG/ML SYRINGE IVP PRN ×2 (01:59→06:11)
--- NOTE | 2021-02-05 04:55 | PN ---
PROGRESS NOTE 71-year-old white male who has osteomyelitis of the right foot, status post debridement. He had difficulty with his breathing at which time we have to get Pulmonology to see him today. Give him steroids, Lasix, updrafts, possibly a CT scan of his chest. Cardiovascular: S1, S2. Lungs scattered rhonchi. Mild wheeze. He has congestive cough, possibly has reflux of acid. Plan continue with Zosyn. Replace electrolytes. Updraft treatments. PROGNOSIS: Guarded. Follow up in the next 24 [address] scan of the chest. MMODL / IJN: [id number] /
[2021-02-05] MEDS: AMPICILLIN-SULBACTAM 3 GM in SODIUM CHLORIDE 0.9% 100 ML IVPB SCH ×4 (05:21→23:15)
[2021-02-05] MEDS: lisinopriL 20 MG TAB PO SCH (07:24)
[2021-02-05] MEDS: amLODIPine 5 MG TAB PO SCH (07:24)
[2021-02-05] MEDS: metFORMIN 500 MG TAB PO SCH ×2 (07:24→20:47)
[2021-02-05 07:25] LABS: Glucose,Whole Blood 142 mg/dL (75-99)
[2021-02-05] MEDS: IPRATROPIUM-ALBUTEROL 3 ML NEB INHALATION SCH ×4 (07:30→19:26)
[2021-02-05] MEDS: INSULIN ASPART (NovoLOG) 100 UNIT/ML VIAL SQ SCH ×4 (07:30→20:48)
[2021-02-05] MEDS: DOCUSATE 100 MG CAP PO SCH ×2 (09:13→20:08)
--- NOTE | 2021-02-05 09:23 | P.CNPUL ---
History of Present Illness Consult date: 02/05/21 Reason for consult: dyspnea, cough Chief complaint: Shortness of breath History of present illness: Patient admitted into the hospital 5 days ago with the infection of the right foot, patient has a 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, patient left AMA, patient came back with the low-grade fever and severe pain in the toes, overall however denies any nausea vomiting denies any chills, past medical history significant for peripheral neuropathy hypertension hypertensive cardiovascular disease and type 2 diabetes mellitus, last chest performed on February 04 revealed asymmetric hyper inflammation with stable PICC line small pleural effusion seen Review of Systems All systems: negative Past Medical History Past Medical History: CVA/TIA, Diabetes Mellitus Additional Past Medical History / Comment(s): neuropathy, TB 30 years ago, History of Any Multi-Drug Resistant Organisms: None Reported Past Surgical History: Appendectomy, Back Surgery Additional Past Surgical History / Comment(s): fusion, right great toe amputation, Past Anesthesia/Blood Transfusion Reactions: No Reported Reaction Past Psychological History: Anxiety, Depression Smoking Status: Current every day smoker Past Alcohol Use History: None Reported Past Drug Use History: Marijuana Medications and Allergies Home Medications Medication Instructions Recorded Confirmed Type Amoxicillin/Potassium Clav 1 tab PO BID 01/30/21 01/30/21 History [Augmentin 875-125 Tablet] Atorvastatin [Lipitor] 40 mg PO HS 01/30/21 01/30/21 History lisinopriL 10 mg PO BID 01/30/21 01/30/21 History metFORMIN HCL [Glucophage] 1,000 mg PO BID 01/30/21 01/30/21 History Allergies Allergy/AdvReac Type Severity Reaction Status Date / Time No Known Allergies Allergy Verified 01/30/21 16:55 Physical Exam Vitals: Vital Signs Temp Pulse Pulse Resp BP Pulse Ox 02/05/21 05:00 97.9 F 83 16 182/73 95 02/04/21 19:45 98.2 F 71 18 145/59 95 02/04/21 16:47 68 02/04/21 16:36 70 02/04/21 11:59 98.1 F 73 22 148/80 95 02/04/21 11:03 76 02/04/21 10:52 69 02/04/21 10:29 101 H 190/78 Intake and Output 02/04/21 02/05/21 02/05/21 22:59 06:59 14:59 Intake Total 1120 Output Total 500 500 Balance 1120 -500 -500 Intake: Intake, IV Titration 400 Amount Ampicillin-Sulbactam 3 gm 400 In Sodium Chloride 0.9% 100 ml @ 200 mls/hr IVPB Q6HR [facility] Rx#:[id number] Oral 720 Output: Urine 500 500 Other: Voiding Method Indwelling Catheter # Voids 4 - Constitutional General appearance: average body habitus, cooperative, disheveled - EENT Eyes: abnormal pupil Ears: bilateral: normal - Neck Neck: normal ROM Carotids: bilateral: upstroke normal Thyroid: bilateral: normal size - Respiratory Respiratory: bilateral: CTA - Cardiovascular Rhythm: regular Heart sounds: normal: S1, S2 - Gastrointestinal General gastrointestinal: decreased bowel sounds - Neurologic Neurologic: CNII-XII intact - Musculoskeletal Musculoskeletal: gait normal, generalized weakness, strength equal bilaterally Results - Laboratory Findings CBC and BMP: 02/02/21 05:57 02/03/21 05:46 PT/INR, D-dimer PT 10.7 sec (9.0-12.0) 01/30/21 15:19 INR 1.0 (<1.2) 01/30/21 15:19 Abnormal lab findings: Abnormal Labs 01/30/21 01/30/21 01/30/21 15:19 15:19 15:19 RBC 4.29 L Hgb 11.9 L Hct 37.2 L Neutrophils # 8.3 H Lymphocytes # 0.8 L ESR Chloride 108 H BUN/Creatinine Ratio Glucose 141 H POC Glucose (mg/dL) Hemoglobin A1c Calcium AST Total Protein Albumin 3.3 L Albumin/Globulin Ratio Urine Protein Trace H Urine Ketones 2+ H Urine Blood Trace H Urine Mucus Rare H 01/30/21 01/30/21 01/30/21 15:19 20:30 22:50 RBC Hgb Hct Neutrophils # Lymphocytes # ESR Chloride BUN/Creatinine Ratio Glucose POC Glucose (mg/dL) 140 H 130 H Hemoglobin A1c 8.5 H Calcium AST Total Protein Albumin Albumin/Globulin Ratio Urine Protein Urine Ketones Urine Blood Urine Mucus 01/31/21 01/31/21 01/31/21 06:33 06:33 06:33 RBC 4.20 L Hgb 11.8 L Hct 37.2 L Neutrophils # Lymphocytes # ESR 60 H Chloride BUN/Creatinine Ratio 9.09 L Glucose 164 H POC Glucose (mg/dL) Hemoglobin A1c Calcium 8.1 L AST 38 H Total Protein Albumin 3.40 L Albumin/Globulin Ratio 1.13 L Urine Protein Urine Ketones Urine Blood Urine Mucus 01/31/21 01/31/21 01/31/21 07:19 11:54 17:23 RBC Hgb Hct Neutrophils # Lymphocytes # ESR Chloride BUN/Creatinine Ratio Glucose POC Glucose (mg/dL) 170 H 179 H 210 H Hemoglobin A1c Calcium AST Total Protein Albumin Albumin/Globulin Ratio Urine Protein Urine Ketones Urine Blood Urine Mucus 02/01/21 02/01/21 02/01/21 12:13 13:42 17:04 RBC Hgb Hct Neutrophils # Lymphocytes # ESR Chloride BUN/Creatinine Ratio Glucose POC Glucose (mg/dL) 133 H 164 H Hemoglobin A1c Calcium AST Total Protein Albumin Albumin/Globulin Ratio Urine Protein Urine Ketones 1+ H Urine Blood Urine Mucus 02/01/21 02/02/21 02/02/21 21:39 05:57 05:57 RBC 3.86 L Hgb 11.0 L Hct 33.3 L Neutrophils # 8.5 H Lymphocytes # ESR Chloride 114 H BUN/Creatinine Ratio Glucose 132 H POC Glucose (mg/dL) 160 H Hemoglobin A1c Calcium 8.0 L AST Total Protein 6.1 L Albumin 2.8 L Albumin/Globulin Ratio Urine Protein Urine Ketones Urine Blood Urine Mucus 02/02/21 02/02/21 02/02/21 07:20 11:29 17:10 RBC Hgb Hct Neutrophils # Lymphocytes # ESR Chloride BUN/Creatinine Ratio Glucose POC Glucose (mg/dL) 130 H 207 H 132 H Hemoglobin A1c Calcium AST Total Protein Albumin Albumin/Globulin Ratio Urine Protein Urine Ketones Urine Blood Urine Mucus 02/02/21 02/03/21 02/03/21 20:40 07:38 12:04 RBC Hgb Hct Neutrophils # Lymphocytes # ESR Chloride BUN/Creatinine Ratio Glucose POC Glucose (mg/dL) 182 H 148 H 136 H Hemoglobin A1c Calcium AST Total Protein Albumin Albumin/Globulin Ratio Urine Protein Urine Ketones Urine Blood Urine Mucus 02/03/21 02/03/21 02/04/21 17:02 20:52 07:19 RBC Hgb Hct Neutrophils # Lymphocytes # ESR Chloride BUN/Creatinine Ratio Glucose POC Glucose (mg/dL) 169 H 148 H 135 H Hemoglobin A1c Calcium AST Total Protein Albumin Albumin/Globulin Ratio Urine Protein Urine Ketones Urine Blood Urine Mucus 02/04/21 02/04/21 02/04/21 11:46 17:31 20:47 RBC Hgb Hct Neutrophils # Lymphocytes # ESR Chloride BUN/Creatinine Ratio Glucose POC Glucose (mg/dL) 211 H 161 H 170 H Hemoglobin A1c Calcium AST Total Protein Albumin Albumin/Globulin Ratio Urine Protein Urine Ketones Urine Blood Urine Mucus 02/05/21 07:24 RBC Hgb Hct Neutrophils # Lymphocytes # ESR Chloride BUN/Creatinine Ratio Glucose POC Glucose (mg/dL) 142 H Hemoglobin A1c Calcium AST Total Protein Albumin Albumin/Globulin Ratio Urine Protein Urine Ketones Urine Blood Urine Mucus - Diagnostic Findings Chest x-ray: report reviewed, image reviewed Assessment and Plan Assessment: Impression COPD overall stable not in exacerbation Hypertension hypertensive cardiovascular disease Interstitial pneumonia versus fluid overload Hypertension hypertensive cardiovascular disease Type 2 diabetes mellitus Plan: Plan is to continue bronchodilators. Eyes and evenanegativeside,increaseactivityastoleratedwewillobserveoffo fsteroidsandantibioticsfortheplanofcarerecommendation Time with Patient: Greater than 30
[2021-02-05] MEDS: HYDROcodone/APAP 5-325MG 1 EACH TAB PO PRN ×2 (10:24→16:38)
[2021-02-05 12:07] LABS: Glucose,Whole Blood 137 mg/dL (75-99)
--- NOTE | 2021-02-05 13:55 | IR ---
PICC LINE PLACEMENT: HISTORY: Infection requiring long-term antibiotic therapy PROCEDURE: Ultrasound and fluoroscopic guidance of PICC line placement. COMPLICATIONS: None ANESTHESIA: 1. 1% Lidocaine locally. FINDINGS/TECHNIQUE: The procedure was explained to the patient. The risks, complications, benefits and alternatives were discussed and any questions were answered. Informed consent was obtained. The patient was placed supine on the fluoroscopic table and prepped and draped in the usual sterile fash ion. Utilizing a 21 gauge needle and sonographic and fluoroscopic guidance, access in the basilic v ein was achieved and there is placement of a 0.018 guidewire. The vein is patent. A 4-F sheath was placed over the guidewire. The guidewire and dilator were removed and a 4-F. PICC line was placed th rough the sheath with the tip at the level of the SVC. The sheath was removed, the catheter was flus hed and sutured into position. The patient was stable throughout the procedure and remained stable u malcom discharge from the Department of Radiology. The vein puncture was patent under ultrasound. A carney scale image was obtained to document patency of the vein punctured. All elements of the maximal barrier technique were utilized. FLUOROSCOPY TIME: 0.1 minutes and one images submitted IMPRESSION: Successful PICC line placement under ultrasound and fluoroscopic guidance.
--- NOTE | 2021-02-05 15:31 | PN ---
PROGRESS NOTE Mr. Stewart had a right big toe amputation done in the past. Patient left against medical advice. This patient has been readmitted to [facility] with wound dehiscence. We did removed a few stitches and we have been treating with local wound care. The patient is under care of Infectious Disease IV antibiotic. The patient is going to custodial. I advised to follow up in my office next week. MMODL / IJN: [id number] /
[2021-02-05] MEDS: TAMSULOSIN 0.4 MG CAP.ER.24H PO SCH (17:35)
[2021-02-05 17:42] LABS: Glucose,Whole Blood 177 mg/dL (75-99)
--- NOTE | 2021-02-05 19:55 | PN ---
PROGRESS NOTE DATE OF SERVICE: 02/05/2021 REASON FOR FOLLOWUP: Right diabetic foot infection with underlying osteomyelitis. INTERVAL HISTORY: The patient is afebrile. The patient is currently breathing comfortably and is waiting for placement. No chest pain, shortness of breath or cough. No abdominal pain or any worsening pain to the right foot. PHYSICAL EXAMINATION: On examination, blood pressure 139/69, pulse of 82, temperature 97.9. GENERAL DESCRIPTION: General description is an elderly male lying in bed in no distress. RESPIRATORY SYSTEM: Unlabored breathing. Clear to auscultation anteriorly. HEART: S1, S2. Regular rate and rhythm. ABDOMEN: Soft. No tenderness. Right foot is currently dressed. No obvious drainage on the dressing. LABS: No new labs have been obtained today. DIAGNOSTIC IMPRESSION AND PLAN: Patient with a right big toe diabetic foot infection with gangrene, status post right big toe amputation with underlying osteomyelitis and wound dehiscence. The patient is covered with Unasyn; to continue. Culture positive for Christine, more likely colonization, not infection. Waiting for placement. Continue supportive care. MMODL / IJN: [id number] /
[2021-02-05 20:36] LABS: Glucose,Whole Blood 134 mg/dL (75-99)
[2021-02-05] MEDS: ZOLPIDEM 5 MG TAB PO PRN (20:47)
[2021-02-05] MEDS: ATORVASTATIN 40 MG TAB PO SCH (20:47)
[2021-02-06] MEDS: MAGNESIUM HYDROXIDE 2,400 MG/10 ML CUP PO PRN (02:13)
[2021-02-06] MEDS: AMPICILLIN-SULBACTAM 3 GM in SODIUM CHLORIDE 0.9% 100 ML IVPB SCH ×4 (05:58→23:33)
[2021-02-06 07:05] LABS: Glucose,Whole Blood 114 mg/dL (75-99)
[2021-02-06] MEDS: IPRATROPIUM-ALBUTEROL 3 ML NEB INHALATION SCH ×5 (07:30→19:23)
--- NOTE | 2021-02-06 07:35 | PN ---
PROGRESS NOTE 71-year-old white male remains on Zosyn. He will need 10-14 days IV antibiotics. Waiting for retirement placement. Blood pressure is better controlled today. Diabetes under better control. Started on Norvasc for blood pressure and increasing Zestril to 40 mg a day and Norvasc 5 mg daily to control his blood pressure. Blood pressure 143/71, O2 93 on room air, temp 98.1, pulse 70s to 60s. Cardiovascular S1, S2. Lungs clear. GI soft. Psych: Fair mood and affect. Left foot is in a dressing. ASSESSMENT: 1. Diabetic foot infection. 2. Osteomyelitis. 3. Status post great toe amputation. 4. Diabetes mellitus. 5. Hypertension acceleration. Continue current treatments. Await for retirement placement. MMODL / IJN: [id number] /
[2021-02-06] MEDS: INSULIN ASPART (NovoLOG) 100 UNIT/ML VIAL SQ SCH ×4 (07:59→21:26)
[2021-02-06] MEDS: DOCUSATE 100 MG CAP PO SCH ×2 (08:05→21:26)
[2021-02-06] MEDS: lisinopriL 20 MG TAB PO SCH (08:05)
[2021-02-06] MEDS: amLODIPine 5 MG TAB PO SCH (08:05)
[2021-02-06] MEDS: metFORMIN 500 MG TAB PO SCH ×2 (08:05→21:30)
[2021-02-06] MEDS: HYDROcodone/APAP 5-325MG 1 EACH TAB PO PRN ×2 (08:05→15:31)
--- NOTE | 2021-02-06 11:08 | P.PN ---
Subjective Progress Note Date: 02/06/21 Principal diagnosis: COPD overall stable not in exacerbation Hypertension hypertensive cardiovascular disease Interstitial pneumonia versus fluid overload Hypertension hypertensive cardiovascular disease Type 2 diabetes mellitus 02/06/2021, patient seen eval examined during the rounds respiratory status slightly better and denies any chest pain shortness of breath, breathing more comfortably, saturation is 94%, blood pressure is 07/19/1972, patient remains afebrile, chest x-ray on February 04 shows hyperinflated x-ray left basilar atelectasis otherwise remains to Patient admitted into the hospital 5 days ago with the infection of the right foot, patient has a 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, patient left AMA, patient came back with the low-grade fever and severe pain in the toes, overall however denies any nausea vomiting denies any chills, past medical history significant for peripheral neuropathy hypertension hypertensive cardiovascular disease and type 2 diabetes mellitus, last chest performed on February 04 revealed asymmetric hyper inflammation with stable PICC line small pleural effusion seen Objective - Vital Signs Vital signs: Vital Signs Temp 98.5 F 02/06/21 05:00 Pulse 88 02/06/21 07:57 Resp 20 02/06/21 08:00 BP 127/75 02/06/21 05:00 Pulse Ox 94 L 02/06/21 05:00 Intake & Output 02/05/21 02/06/21 02/06/21 18:59 06:59 18:59 Intake Total 2760 840 Output Total 1700 1 Balance 1060 839 Intake: Intake, IV Titration 300 Amount Ampicillin-Sulbactam 3 gm 300 In Sodium Chloride 0.9% 100 ml @ 200 mls/hr IVPB Q6HR [facility] Rx#:[id number] Oral 2460 840 Output: Urine 1700 Uretheral (Stevens) 900 Urine/Stool Mix 1 Other: Voiding Method Indwelling Catheter Urinal Urinal # Voids 1 4 # Bowel Movements 4 - Exam Constitutional General appearance: average body habitus, cooperative, disheveled - EENT Eyes: abnormal pupil Ears: bilateral: normal - Neck Neck: normal ROM Carotids: bilateral: upstroke normal Thyroid: bilateral: normal size - Respiratory Respiratory: bilateral: CTA - Cardiovascular Rhythm: regular Heart sounds: normal: S1, S2 - Gastrointestinal General gastrointestinal: decreased bowel sounds - Neurologic Neurologic: CNII-XII intact - Musculoskeletal Musculoskeletal: gait normal, generalized weakness, strength equal bilaterally - Labs CBC & Chem 7: 02/02/21 05:57 02/03/21 05:46 Labs: Abnormal Lab Results - Last 24 Hours (Table) 02/05/21 02/05/21 02/05/21 Range/Units 12:05 17:41 20:33 POC Glucose (mg/dL) 137 H 177 H 134 H (75-99) mg/dL 02/06/21 Range/Units 07:04 POC Glucose (mg/dL) 114 H (75-99) mg/dL Microbiology - Last 24 Hours (Table) 02/01/21 16:32 Anaerobic Culture - Final Toe - Right First 01/30/21 15:19 Blood Culture - Final Blood No Growth after 144 hours 01/30/21 15:19 Blood Culture - Final Blood No Growth after 144 hours Assessment and Plan Assessment: Left lower lobe basal atelectasis Impression COPD overall stable not in exacerbation Hypertension hypertensive cardiovascular disease Interstitial pneumonia versus fluid overload Hypertension hypertensive cardiovascular disease Type 2 diabetes mellitus Plan: Continue deep breathing sense incentive spirometry Brandon continue deep breathing exercises incentive spirometry n is to continue bronchodilators. Eyes and evenanegativeside,increaseactivityastoleratedwewillobserveoffo fsteroidsandantibioticsfortheplanofcarerecommendation Time with Patient: Greater than 30
[2021-02-06 12:20] LABS: Glucose,Whole Blood 118 mg/dL (75-99)
[2021-02-06] MEDS: TAMSULOSIN 0.4 MG CAP.ER.24H PO SCH (17:28)
[2021-02-06 17:49] LABS: Glucose,Whole Blood 185 mg/dL (75-99)
--- NOTE | 2021-02-06 19:58 | PN ---
PROGRESS NOTE DATE OF SERVICE: 02/06/2021 REASON FOR FOLLOWUP: Right diabetic foot wound and osteomyelitis. INTERVAL HISTORY: The patient is afebrile. The patient is currently breathing comfortably, waiting for placement. No chest pain or cough. No abdominal pain or diarrhea. PHYSICAL EXAMINATION: Blood pressure 171/80 with a pulse of 86, temperature is 97.5. He is 91% on room air. General description is an elderly male lying in bed in no distress. Respiratory system: Unlabored breathing, clear to auscultation anteriorly. Heart: S1, S2. Regular rate and rhythm. Abdomen soft, no tenderness. Right foot is currently dressed. No obvious drainage on the dressing. LABS: No new labs have been obtained today. DIAGNOSTIC IMPRESSION AND PLAN: Patient with right big toe osteomyelitis status post amputation with concern for dehiscence of the wound and underlying osteomyelitis. Patient is covered with Unasyn. Local care with dry Aquacel dressing and continue supportive care. MMODL / IJN: [id number] /
[2021-02-06 20:03] VITALS: RESP 16
[2021-02-06 20:23] LABS: Glucose,Whole Blood 200 mg/dL (75-99)
[2021-02-06] MEDS: ATORVASTATIN 40 MG TAB PO SCH (21:25)
[2021-02-06] MEDS: ZOLPIDEM 5 MG TAB PO PRN (21:25)
[2021-02-07] MEDS: HYDROcodone/APAP 5-325MG 1 EACH TAB PO PRN ×2 (01:07→08:44)
[2021-02-07] MEDS: AMPICILLIN-SULBACTAM 3 GM in SODIUM CHLORIDE 0.9% 100 ML IVPB SCH ×2 (05:27→12:24)
[2021-02-07] MEDS: IPRATROPIUM-ALBUTEROL 3 ML NEB INHALATION SCH ×3 (07:07→15:29)
[2021-02-07] MEDS: amLODIPine 5 MG TAB PO SCH (07:51)
[2021-02-07] MEDS: lisinopriL 20 MG TAB PO SCH (07:52)
[2021-02-07] MEDS: DOCUSATE 100 MG CAP PO SCH (07:52)
[2021-02-07] MEDS: metFORMIN 500 MG TAB PO SCH (07:53)
[2021-02-07] MEDS: INSULIN ASPART (NovoLOG) 100 UNIT/ML VIAL SQ SCH ×2 (07:57→12:33)
[2021-02-07 08:01] LABS: Glucose,Whole Blood 112 mg/dL (75-99)
[2021-02-07] MEDS: MAGNESIUM HYDROXIDE 2,400 MG/10 ML CUP PO PRN (08:44)
[2021-02-07 12:38] LABS: Glucose,Whole Blood 118 mg/dL (75-99)
[2021-02-07 12:42] VITALS: BP 163/52; PULSE 82; TEMP 97.8
--- NOTE | 2021-02-07 13:31 | PN ---
PROGRESS NOTE DATE OF SERVICE: 02/06/2021 His hypertension is greatly improved. His wound dressings are improving. He remains on IV antibiotics for 4 to 6 weeks due to osteomyelitis of the left foot. He is continued with IV antibiotics. Vital signs stable. Afebrile. Cardiovascular: S1, S2. Lungs clear. GI soft. ASSESSMENT: 1. Osteomyelitis of the left foot. Long-term IV antibiotics. 2. Hypertension is controlled. 3. Diabetes, controlled. Continue with current treatment. Follow up as an outpatient. MMODL / IJN: [id number] /
--- NOTE | 2021-02-07 13:42 | DS ---
DISCHARGE SUMMARY DISCHARGE MEDICATIONS: 1. Norvasc 5 mg daily. 2. DuoNeb 3 mL q.i.d. 3. Zosyn 3 grams IV piggyback q.6 hours. 4. Lipitor 40 mg daily. 5. Colace 100 mg b.i.d. 6. [place] 5/325 one every 6 hours p.r.n. for pain. 7. Accu-Chek protocol. 8. NovoLog insulin before meals and at bedtime. 9. Zestril 40 mg daily. 10.Metformin 1000 mg b.i.d. 11.Flomax 0.4 mg daily. 12.Ambien 5 mg daily p.r.n. as needed for insomnia. CONDITION: Stable. PROGNOSIS: Guarded. Ambulate as tolerated. Diet will be consistent-carb ADA diet. DISCHARGE DIAGNOSIS: 1. Osteomyelitis, left foot, status post great toe amputation. 2. Cellulitis, left foot. 3. Diabetic wound infection, left foot. 4. Dyslipidemia. 5. Hypertension acceleration. 6. Benign prostatic hypertrophy. 7. Urinary retention. Condition stable. The patient came to the hospital with a diabetic wound infection after signing out AMA from another hospital. He came in and was started back on his IV antibiotics. Will need a PICC line with 6 weeks of IV antibiotics at the [place] [facility]. Continue with pain medications as needed. Hypertension acceleration was treated with Zestril, Norvasc. Antibiotics as mentioned above. Continue with Flomax for BPH and he had some urinary retention. Medications as mentioned above for diabetes. Pain control. Wall[place] 5/325 every 6 hours p.r.n. for pain. He was stabilized. PICC line was re-established and outpatient IV antibiotics have been rearranged for the [facility]. Follow up with Dr. Royal Mendoza at the [facility]. Condition stable. Prognosis guarded. MMODL / IJN: [id number] /
--- NOTE | 2021-02-07 16:16 | P.PN ---
Subjective Progress Note Date: 02/07/21 Principal diagnosis: COPD overall stable not in exacerbation Hypertension hypertensive cardiovascular disease Interstitial pneumonia versus fluid overload Hypertension hypertensive cardiovascular disease Type 2 diabetes mellitus January 272020, patient seen eval examined during the rounds labs and medications reviewed, restricted status remains stable, patient remains in the mid chest pain, sats remained 92%, patient has been treated with IV Unasyn 02/06/2021, patient seen eval examined during the rounds respiratory status slightly better and denies any chest pain shortness of breath, breathing more comfortably, saturation is 94%, blood pressure is 07/19/1972, patient remains afebrile, chest x-ray on February 04 shows hyperinflated x-ray left basilar atelectasis otherwise remains to Patient admitted into the hospital 5 days ago with the infection of the right foot, patient has a 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, patient left AMA, patient came back with the low-grade fever and severe pain in the toes, overall however denies any nausea vomiting denies any chills, past medical history significant for peripheral neuropathy hypertension hypertensive cardiovascular disease and type 2 diabetes mellitus, last chest performed on February 04 revealed asymmetric hyper inflammation with stable PICC line small pleural effusion seen Objective - Vital Signs Vital signs: Vital Signs Temp 97.8 F 02/07/21 12:15 Pulse 82 02/07/21 12:15 Resp 16 02/07/21 12:15 BP 163/52 02/07/21 12:15 Pulse Ox 90 L 02/07/21 12:15 Intake & Output 02/06/21 02/07/21 02/07/21 18:59 06:59 18:59 Weight 79.832 kg Other: Voiding Method Urinal Bedside Commode Bedside Commode Urinal Urinal # Voids 2 3 # Bowel Movements 3 - Exam Constitutional General appearance: average body habitus, cooperative, disheveled - EENT Eyes: abnormal pupil Ears: bilateral: normal - Neck Neck: normal ROM Carotids: bilateral: upstroke normal Thyroid: bilateral: normal size - Respiratory Respiratory: bilateral: CTA - Cardiovascular Rhythm: regular Heart sounds: normal: S1, S2 - Gastrointestinal General gastrointestinal: decreased bowel sounds - Neurologic Neurologic: CNII-XII intact - Musculoskeletal Musculoskeletal: gait normal, generalized weakness, strength equal bilaterally - Labs CBC & Chem 7: 02/02/21 05:57 02/03/21 05:46 Labs: Abnormal Lab Results - Last 24 Hours (Table) 02/06/21 02/06/21 02/07/21 Range/Units 17:48 20:22 07:56 POC Glucose (mg/dL) 185 H 200 H 112 H (75-99) mg/dL 02/07/21 Range/Units 12:15 POC Glucose (mg/dL) 118 H (75-99) mg/dL Assessment and Plan Assessment: Left lower lobe basal atelectasis Impression COPD overall stable not in exacerbation Hypertension hypertensive cardiovascular disease Interstitial pneumonia versus fluid overload Hypertension hypertensive cardiovascular disease Type 2 diabetes mellitus Plan: Continue deep breathing sense incentive spirometry Brandon continue deep breathing exercises incentive spirometry n is to continue bronchodilators. increase activity as tolerated we will observe off of steroids Continue antibiotics as per infectious disease recommendation, agree with discharge planning follow-up on outpatient basis Time with Patient: Greater than 30
--- NOTE | 2021-02-07 16:46 | PN ---
PROGRESS NOTE DATE OF SERVICE: 02/07/2021 REASON FOR FOLLOWUP: Right foot foot osteomyelitis. INTERVAL HISTORY: The patient is afebrile. The patient is currently feeling better, breathing comfortably. Denies having any chest pain or shortness of breath or cough. No abdominal pain or pain to the right foot area. PHYSICAL EXAMINATION: On examination, blood pressure is 163/52 with a pulse of , temperature 97.9. He is 98% on room air. GENERAL DESCRIPTION: General description is an elderly male lying in bed in no distress. RESPIRATORY SYSTEM: Unlabored breathing. Clear to auscultation anteriorly. HEART: S1, S2. Regular rate and rhythm. ABDOMEN: Soft. No tenderness. LABS: No new labs have been obtained today. DIAGNOSTIC IMPRESSION AND PLAN: Patient with a right big toe diabetic foot infection with osteomyelitis, status post amputation, status post dehiscence of the wound. The patient is currently responding to Unasyn; to continue. Local wound care with dry Aquacel Silver dressing. [facility]. Questions and concerns were answered. MMODL / IJN: [id number] /
== END 2021-02-07 15:41 | DRG 863 ==
LOC: EC 14:43 → 5NMEDONC 16:19
PROVIDERS: ADMIT Family Medicine; ATTEND Family Medicine
PROC: 02HV33Z Insertion of Infusion Device into Superior Vena Cava, Percutaneous Approach (ICD-10-PCS; principal; 2021-02-05)
DX: T81.41XA Infection following a procedure, superficial incisional surgical site, initial encounter (principal); L03.115 Cellulitis of right lower limb; M86.8X7 Other osteomyelitis, ankle and foot; T81.30XA Disruption of wound, unspecified, initial encounter; L03.116 Cellulitis of left lower limb; E11.52 Type 2 diabetes mellitus with diabetic peripheral angiopathy with gangrene; J98.11 Atelectasis; E11.628 Type 2 diabetes mellitus with other skin complications; N40.1 Benign prostatic hyperplasia with lower urinary tract symptoms; Z79.2 Long term (current) use of antibiotics; Z79.84 Long term (current) use of oral hypoglycemic drugs; R33.8 Other retention of urine; Z79.899 Other long term (current) drug therapy; Z89.429 Acquired absence of other toe(s), unspecified side; Z89.411 Acquired absence of right great toe; Z86.73 Personal history of transient ischemic attack (TIA), and cerebral infarction without residual deficits; E11.69 Type 2 diabetes mellitus with other specified complication; E11.40 Type 2 diabetes mellitus with diabetic neuropathy, unspecified; E78.5 Hyperlipidemia, unspecified; F17.200 Nicotine dependence, unspecified, uncomplicated; I11.9 Hypertensive heart disease without heart failure; J44.9 Chronic obstructive pulmonary disease, unspecified; F32.9 Major depressive disorder, single episode, unspecified; F41.9 Anxiety disorder, unspecified
CPT/HCPCS: 36415; 36573; 71046; 80053; 80202; 81001; 81003; 82565; 83036; 83605; 85025; 85610; 85652; 85730; 87040; 87070; 87075; 87205; 93005; 94640; 96365; 99285

== ENCOUNTER 2023-10-18 11:43 | Emergency (ER) | payer MEDICARE ==
--- NOTE | 2023-10-18 12:00 | ED ---
General Adult HPI - General Chief complaint: Shortness of Breath Stated complaint: SOB Time Seen by Provider: 10/18/23 11:47 Source: patient, EMS, RN notes reviewed Mode of arrival: EMS Limitations: no limitations - History of Present Illness Initial comments: Patient is a 73-year-old male presenting to the emergency department with concerns with difficulty breathing. Onset of symptoms was yesterday. Patient is a smoker however no history of lung disease. Occasional cough. No fever. Cough is nonproductive. No congestion. No calf pain. No leg swelling. No chest pain. - Related Data Previous Rx's Medication Instructions Recorded Albuterol Inhaler [Ventolin Hfa 2 puff INHALATION Q4HR PRN #1 each 10/18/23 Inhaler] predniSONE [Deltasone] 20 mg PO BID #10 tab 10/18/23 Allergies Allergy/AdvReac Type Severity Reaction Status Date / Time No Known Allergies Allergy Verified 10/18/23 13:15 Review of Systems ROS Statement: Those systems with pertinent positive or pertinent negative responses have been documented in the HPI. ROS Other: All systems not noted in ROS Statement are negative. Constitutional: Denies: fever Eyes: Denies: eye pain ENT: Denies: ear pain Respiratory: Reports: as per HPI, cough (Mild), dyspnea Cardiovascular: Denies: chest pain Endocrine: Denies: fatigue Gastrointestinal: Denies: abdominal pain Genitourinary: Denies: dysuria Musculoskeletal: Denies: back pain Past Medical History Past Medical History: CVA/TIA, Diabetes Mellitus Additional Past Medical History / Comment(s): neuropathy, TB 30 years ago, History of Any Multi-Drug Resistant Organisms: None Reported Past Surgical History: Appendectomy, Back Surgery Additional Past Surgical History / Comment(s): fusion, right great toe amp utation, Past Anesthesia/Blood Transfusion Reactions: No Reported Reaction Past Psychological History: Anxiety, Depression Smoking Status: Current every day smoker Past Alcohol Use History: None Reported Past Drug Use History: Marijuana General Exam Limitations: no limitations General appearance: alert, in no apparent distress Head exam: Present: normocephalic Eye exam: Present: normal appearance Neck exam: Present: normal inspection Respiratory exam: Present: accessory muscle use, decreased breath sounds Cardiovascular Exam: Present: regular rate, normal rhythm GI/Abdominal exam: Present: soft. Absent: tenderness Extremities exam: Present: normal inspection. Absent: pedal edema, calf tenderness Neurological exam: Present: alert Psychiatric exam: Present: normal affect, normal mood Skin exam: Present: normal color Course Vital Signs 10/18/23 10/18/23 10/18/23 11:51 12:17 13:26 Pulse Rate 85 53 L Respiratory 14 16 Rate Blood Pressure 129/119 O2 Sat by Pulse 96 Oximetry EKG Findings - EKG Results: EKG: interpreted by ERMD (Subtotal Q waves), sinus rhythm, normal axis, not changed from: (January 30, 2021) EKG shows: bradycardia Medical Decision Making - Medical Decision Making Was pt. sent in by a medical professional or institution (, PA, MAINTENANCE SHOP WELDER, urgent care, hospital, or shelter...) When possible be specific @ -No Did you speak to anyone other than the patient for history (EMS, parent, family, police, friend...)? What history was obtained from this source @ -No Did you review nursing and triage notes (agree or disagree)? Why? @ -I reviewed and agree with nursing and triage notes Were old charts reviewed (outside hosp., previous admission, EMS record, old EKG, old radiological studies, urgent care reports/EKG's, shelter records)? Report findings @ -No old charts were reviewed Differential Diagnosis (chest pain, altered mental status, abdominal pain women, abdominal pain men, vaginal bleeding, weakness, fever, dyspnea, syncope, headache, dizziness, GI bleed, back pain, seizure, CVA, palpatations, mental health, musculoskeletal)? @ -Differential Dyspnea: Coronary syndrome, arrhythmia, tamponade, asthma, COPD, pulmonary embolism, pneumonia, pneumothorax, pulmonary effusion, anaphylaxis, diabetic ketoacidosis, flailed chest, pulmonary contusion, diaphragmatic rupture, anemia, neuromuscu lar, this is not meant to be an all-inclusive list. EKG interpreted by me (3pts min.). @ -As above X-rays interpreted by me (1pt min.). @ -Chest x-ray shows hyperinflation CT interpreted by me (1pt min.). @ -None done U/S interpreted by me (1pt. min.). @ -None done What testing was considered but not performed or refused? (CT, X-rays, U/S, labs)? Why? @ -None What meds were considered but not given or refused? Why? @ -None Did you discuss the management of the patient with other professionals (professionals i.e. , PA, MAINTENANCE SHOP WELDER, lab, RT, psych nurse, vp digital marketing social media and crm, resident services manager, teacher, community service patrol officer, welfare case worker)? Give summary @ -No Was smoking cessation discussed for >3mins.? @ -No Was critical care preformed (if so, how long)? @ -No Were there social determinants of health that impacted care today? How? (Homelessness, low income, unemployed, alcoholism, drug addiction, transportat ion, low edu. Level, literacy, decrease access to med. care, group home, rehab)? @ -No Was there de-escalation of care discussed even if they declined (Discuss DNR or withdrawal of care, Hospice)? DNR status @ -No What co-morbidities impacted this encounter? (DM, HTN, Smoking, COPD, CAD, Cancer, CVA, ARF, Chemo, Hep., AIDS, mental health diagnosis, sleep apnea, morbid obesity)? @ -None Was patient admitted / discharged? Hospital course, mention meds given and route, prescriptions, significant lab abnormalities, going to OR and other pertinent info. @ -Patient reevaluated and significantly improved following nebulizer. Patient requesting discharge home. Patient also requests anti-inflammatory for his chronic gout. Patient updated on results and need for follow Undiagnosed new problem with uncertain prognosis? @ -No Drug Therapy requiring intensive monitoring for toxicity (Heparin, Nitro, Insulin, Cardizem)? @ -No Were any procedures done? @ -No Diagnosis/symptom? @ -COPD Acute, or Chronic, or Acute on Chronic? @ -Acute Uncomplicated (without systemic symptoms) or Complicated (systemic symptoms)? @ -Default Side effects of treatment? @ -No Exacerbation, Progression, or Severe Exacerbation? @ -No Poses a threat to life or bodily function? How? (Chest pain, [place], [place], pneumonia, PE, COPD, DKA, ARF, appy, cholecystitis, CVA, Diverticulitis, Homicidal, Suicidal, threat to staff... and all critical care pts) @ -No - Lab Data Result diagrams: 10/18/23 12:17 10/18/23 12:17 Lab Results 10/18/23 10/18/23 10/18/23 Range/Units 12:17 12:17 12:17 WBC 10.3 (3.8-10.6) k/uL RBC 5.20 (4.30-5.90) m/uL Hgb 14.3 (13.0-17.5) gm/dL Hct 45.0 (39.0-53.0) % MCV 86.6 (80.0-100.0) fL MCH 27.5 (25.0-35.0) pg MCHC 31.8 (31.0-37.0) g/dL RDW 15.4 (11.5-15.5) % Plt Count 256 (150-450) k/uL MPV 7.0 Neutrophils % 70 % Lymphocytes % 19 % Monocytes % 7 % Eosinophils % 2 % Basophils % 1 % Neutrophils # 7.2 (1.3-7.7) k/uL Lymphocytes # 1.9 (1.0-4.8) k/uL Monocytes # 0.7 (0-1.0) k/uL Eosinophils # 0.2 (0-0.7) k/uL Basophils # 0.1 (0-0.2) k/uL PT 10.1 (10.0-12.5) sec INR 0.9 (<1.2) APTT 25.4 (22.0-30.0) sec D-Dimer 0.55 (<0.60) mg/L FEU Sodium 143 (137-145) mmol/L Potassium 4.1 (3.5-5.1) mmol/L Chloride 107 (98-107) mmol/L Carbon Dioxide 28 (22-30) mmol/L Anion Gap 8 mmol/L BUN 17 (9-20) mg/dL Creatinine 0.86 (0.66-1.25) mg/dL Est GFR (CKD-EPI)AfAm >90 (>60 ml/min/1.73 sqM) Est GFR (CKD-EPI)NonAf 87 (>60 ml/min/1.73 sqM) Glucose 133 H (74-99) mg/dL Plasma Lactic Acid Jarred (0.7-2.0) mmol/L Calcium 9.3 (8.4-10.2) mg/dL Magnesium 1.6 (1.6-2.3) mg/dL Total Bilirubin 0.7 (0.2-1.3) mg/dL AST 21 (17-59) U/L ALT 16 (4-49) U/L Alkaline Phosphatase 82 (38-126) U/L Troponin I (0.000-0.034) ng/mL NT-Pro-B Natriuret Pep 1180 pg/mL Total Protein 7.4 (6.3-8.2) g/dL Albumin 4.1 (3.5-5.0) g/dL Influenza Type A (PCR) (Not Detectd) Influenza Type B (PCR) (Not Detectd) RSV (PCR) (Not Detectd) SARS-CoV-2 (PCR) (Not Detectd) 10/18/23 10/18/23 10/18/23 Range/Units 12:17 12:17 12:17 WBC (3.8-10.6) k/uL RBC (4.30-5.90) m/uL Hgb (13.0-17.5) gm/dL Hct (39.0-53.0) % MCV (80.0-100.0) fL MCH (25.0-35.0) pg MCHC (31.0-37.0) g/dL RDW (11.5-15.5) % Plt Count (150-450) k/uL MPV Neutrophils % % Lymphocytes % % Monocytes % % Eosinophils % % Basophils % % Neutrophils # (1.3-7.7) k/uL Lymphocytes # (1.0-4.8) k/uL Monocytes # (0-1.0) k/uL Eosinophils # (0-0.7) k/uL Basophils # (0-0.2) k/uL PT (10.0-12.5) sec INR (<1.2) APTT (22.0-30.0) sec D-Dimer (<0.60) mg/L FEU Sodium (137-145) mmol/L Potassium (3.5-5.1) mmol/L Chloride (98-107) mmol/L Carbon Dioxide (22-30) mmol/L Anion Gap mmol/L BUN (9-20) mg/dL Creatinine (0.66-1.25) mg/dL Est GFR (CKD-EPI)AfAm (>60 ml/min/1.73 sqM) Est GFR (CKD-EPI)NonAf (>60 ml/min/1.73 sqM) Glucose (74-99) mg/dL Plasma Lactic Acid Jarred 0.7 (0.7-2.0) mmol/L Calcium (8.4-10.2) mg/dL Magnesium (1.6-2.3) mg/dL Total Bilirubin (0.2-1.3) mg/dL AST (17-59) U/L ALT (4-49) U/L Alkaline Phosphatase (38-126) U/L Troponin I 0.014 (0.000-0.034) ng/mL NT-Pro-B Natriuret Pep pg/mL Total Protein (6.3-8.2) g/dL Albumin (3.5-5.0) g/dL Influenza Type A (PCR) Not Detected (Not Detectd) Influenza Type B (PCR) Not Detected (Not Detectd) RSV (PCR) Not Detected (Not Detectd) SARS-CoV-2 (PCR) Not Detected (Not Detectd) Disposition Clinical Impression: Acute exacerbation of chronic obstructive pulmonary disease Disposition: HOME SELF-CARE Condition: Stable Instructions (If sedation given, give patient instructions): COPD (Chronic Obstructive Pulmonary Disease) (ED) Additional Instructions: Prescription sent to pharmacy. Please do follow-up with your primary care p martinez Friday. Return for difficulty breathing, fever, worsening or changing symptoms or any other concerns. Prescriptions: predniSONE [Deltasone] 20 mg PO BID #10 tab Albuterol Inhaler [Ventolin Hfa Inhaler] 2 puff INHALATION Q4HR PRN #1 each PRN Reason: Dyspnea Is patient prescribed a controlled substance at d/c from ED?: No Referrals: Royal Gallardo MD [Primary Care Provider] - 1-2 days Time of Disposition: 13:44
[2023-10-18 12:30] LABS: Basophils # (A) 0.1 k/uL (0-0.2); Basophils % (A) 1 %; Eosinophils # (A) 0.2 k/uL (0-0.7); Eosinophils % (A) 2 %; HGB 14.3 gm/dL (13.0-17.5); Lymphocytes # (A) 1.9 k/uL (1.0-4.8); Lymphocytes % (A) 19 %; MCH 27.5 pg (25.0-35.0); MCHC 31.8 g/dL (31.0-37.0); MCV 86.6 fL (80.0-100.0); Monocytes # (A) 0.7 k/uL (0-1.0); Monocytes % (A) 7 %; Neutrophils # (A) 7.2 k/uL (1.3-7.7); Neutrophils % (A) 70 %; Platelet Count 256 k/uL (150-450); RDW 15.4 % (11.5-15.5); WBC 10.3 k/uL (3.8-10.6)
[2023-10-18 12:44] LABS: INR 0.9 (<1.2); Partial Thromboplastin Time 25.4 sec (22.0-30.0); Prothrombin Time 10.1 sec (10.0-12.5)
[2023-10-18 12:52] LABS: ALT 16 U/L (4-49); AST 21 U/L (17-59); African American GFR (CKD) >90 (>60 ml/min/1.73 sqM); Albumin 4.1 g/dL (3.5-5.0); Alkaline Phosphatase 82 U/L (38-126); Anion Gap 8 mmol/L; Blood Urea Nitrogen 17 mg/dL (9-20); Calcium 9.3 mg/dL (8.4-10.2); Carbon Dioxide 28 mmol/L (22-30); Chloride 107 mmol/L (98-107); Glucose 133 mg/dL (74-99); Magnesium 1.6 mg/dL (1.6-2.3); Non-African American GFR(CKD) 87 (>60 ml/min/1.73 sqM); Potassium 4.1 mmol/L (3.5-5.1); Sodium 143 mmol/L (137-145); Total Bilirubin 0.7 mg/dL (0.2-1.3); Total Protein 7.4 g/dL (6.3-8.2)
[2023-10-18 13:00] LABS: NT-Pro-B-Type Natriuretic Pept 1180 pg/mL
[2023-10-18 13:06] VITALS: RESP 16
--- NOTE | 2023-10-18 13:21 | XR ---
EXAMINATION TYPE: XR chest 2V DATE OF EXAM: 10/18/2023 COMPARISON: 02/04/2021 HISTORY: 73-year-old male difficulty breathing, shortness of breath TECHNIQUE: AP and lateral views FINDINGS: Heart normal size. Aorta and pulmonary vasculature are within normal limits. Mild hyperinflation. No consolidation or pleural effusion. IMPRESSION: Possible underlying COPD. Clinically correlate. No acute process otherwise seen.
[2023-10-18] MEDS: IPRATROPIUM-ALBUTEROL 3 ML NEB INHALATION STA (13:25)
[2023-10-18] MEDS: KETOROLAC 15 MG/ML 1 ML VIAL IVP STA (14:15)
[2023-10-18 15:02] VITALS: BP 161/89; PULSE 84
== END 2023-10-18 14:28 | disposition home or self-care (01) ==
LOC: EC 11:43
DX: J44.1 Chronic obstructive pulmonary disease with (acute) exacerbation (principal); R00.1 Bradycardia, unspecified; F17.200 Nicotine dependence, unspecified, uncomplicated; Z86.73 Personal history of transient ischemic attack (TIA), and cerebral infarction without residual deficits
CPT/HCPCS: 99285; 96374; 36415; 94640; 93005; 85379; 83880; 80053; 83605; 83735; 84484; 85025; 85610; 85730; 87636; 71046; J1885

== ENCOUNTER 2024-10-25 10:21 | Emergency (ER) | payer MEDICARE ==
[2024-10-25 10:32] VITALS: TEMP 97.3
[2024-10-25] MEDS: SODIUM CHLORIDE 0.9% 1,000 ML IV ONE (11:08)
[2024-10-25] MEDS: methylPREDNISolone SOD SUCCI 125 MG/2 ML VIAL IV STA (11:08)
[2024-10-25 11:13] LABS: Basophils % (A) 1.2 %; Eosinophils # (A) 0.19 10*3/uL (0.04-0.35); Eosinophils % (A) 2.3 %; HCT 43.1 % (39.6-50.0); HGB 14.1 g/dL (13.0-17.0); Lymphocytes # (A) 1.98 10*3/uL (0.90-5.00); Lymphocytes % (A) 23.6 %; MCH 27.9 pg (27.0-32.0); MCHC 32.7 g/dL (32.0-37.0); MCV 85.2 fL (80.0-97.0); Monocytes % (A) 8.3 %; Neutrophils % (A) 64.4 %; Platelet Count 225 10*3/uL (140-440); RBC 5.06 10*6/uL (4.40-5.60); RDW 14.2 % (11.5-14.5); WBC 8.39 10*3/uL (4.50-10.00)
[2024-10-25 11:22] LABS: INR 0.9 (<1.2); Partial Thromboplastin Time 23.9 sec (22.0-30.0); Prothrombin Time 10.3 sec (10.0-12.5)
[2024-10-25 11:25] LABS: ALT 16 U/L (4-49); AST 18 U/L (17-59); African American GFR (CKD) 65 (>60 ml/min/1.73 sqM); Alkaline Phosphatase 88 U/L (38-126); Anion Gap 9 mmol/L; Blood Urea Nitrogen 25 mg/dL (9-20); Calcium 9.2 mg/dL (8.4-10.2); Carbon Dioxide 30 mmol/L (22-30); Chloride 104 mmol/L (98-107); Glucose 146 mg/dL (74-99); Magnesium 1.8 mg/dL (1.6-2.3); Non-African American GFR(CKD) 57 (>60 ml/min/1.73 sqM); Potassium 3.6 mmol/L (3.5-5.1); Sodium 143 mmol/L (137-145); Total Bilirubin 0.6 mg/dL (0.2-1.3); Total Protein 7.2 g/dL (6.3-8.2)
--- NOTE | 2024-10-25 11:29 | ED ---
General Adult HPI - General Chief complaint: Upper Respiratory Infection Stated complaint: DANGELO Time Seen by Provider: 10/25/24 10:32 Source: patient, EMS, RN notes reviewed Mode of arrival: EMS Limitations: no limitations - History of Present Illness Initial comments: 74-year-old male presents emergency department chief complaint of shortness of breath. Patient presents via EMS. Patient was given breathing treatment by EMS which has helped some. Patient does admit that he is a smoker. Patient denies any chest pain states more tightness in his chest. Patient found to be hypoxic by EMS. Patient was placed on supplemental O2. Patient denies any leg pain or leg swelling no abdominal complaints. - Related Data Previous Rx's Medication Instructions Recorded Albuterol Inhaler [Ventolin Hfa 1 - 2 puff INHALATION Q6H PRN #1 10/25/24 Inhaler] each predniSONE 50 mg PO DAILY #5 tab 10/25/24 Allergies Allergy/AdvReac Type Severity Reaction Status Date / Time No Known Allergies Allergy Verified 10/25/24 13:13 Review of Systems ROS Statement: Those systems with pertinent positive or pertinent negative responses have been documented in the HPI. ROS Other: All systems not noted in ROS Statement are negative. Past Medical History Past Medical History: CVA/TIA, Diabetes Mellitus Additional Past Medical History / Comment(s): neuropathy, TB 30 years ago, History of Any Multi-Drug Resistant Organisms: None Reported Past Surgical History: Appendectomy, Back Surgery Additional Past Surgical History / Comment(s): fusion, right great toe amputation, Past Anesthesia/Blood Transfusion Reactions: No Reported Reaction Past Psychological History: Anxiety, Depression Smoking Status: Current every day smoker Past Alcohol Use History: None Reported Past Drug Use History: Marijuana General Exam Limitations: no limitations General appearance: alert, in no apparent distress Head exam: Present: atraumatic, normocephalic, normal inspection Neck exam: Present: normal inspection, full ROM. Absent: tenderness, menin gismus, lymphadenopathy Respiratory exam: Present: respiratory distress, wheezes, decreased breath sounds. Absent: normal lung sounds bilaterally, rales, rhonchi, stridor Cardiovascular Exam: Present: normal rhythm, bradycardia, normal heart sounds. Absent: systolic murmur, diastolic murmur, rubs, gallop, clicks GI/Abdominal exam: Present: soft, normal bowel sounds. Absent: distended, tenderness, guarding, rebound, rigid Extremities exam: Absent: pedal edema Neurological exam: Present: alert, oriented X3 Course Vital Signs 10/25/24 10/25/24 10/25/24 10:23 10:40 12:07 Temperature 97.3 F L Pulse Rate 42 L 61 Respiratory 32 H 26 H 18 Rate Blood Pressure 197/92 180/81 O2 Sat by Pulse 87 L 96 Oximetry 10/25/24 10/25/24 12:21 12:31 Temperature Pulse Rate 61 58 L Respiratory Rate Blood Pressure O2 Sat by Pulse Oximetry EKG Findings - EKG Comments: EKG Findings:: For her EKG quality, this was performed at 10: 35 sinus rhythm rate of 69 [place] 130 217/[address] elevation or depression noted - EKG Results: EKG: interpreted by JEOVANNY Medical Decision Making - Medical Decision Making Was pt. sent in by a medical professional or institution (, PA, LANDSCAPER, urgent care, hospital, or [facility]...) When possible be specific @ -No Did you speak to anyone other than the patient for history (EMS, parent, family, police, friend...)? What history was obtained from this source @ -No Did you review nursing and triage notes (agree or disagree)? Why? @ -I reviewed and agree with nursing and triage notes Were old charts reviewed (outside hosp., previous admission, EMS record, old EKG, old radiological studies, urgent care reports/EKG's, mcc records)? Report findings @ -No old charts were reviewed Differential Diagnosis (chest pain, altered mental status, abdominal pain women, abdominal pain men, vaginal bleeding, weakness, fever, dyspnea, syncope, headache, dizziness, GI bleed, back pain, seizure, CVA, palpatations, mental health, musculoskeletal)? @ -Differential Dyspnea: Coronary syndrome, arrhythmia, tamponade, asthma, COPD, pulmonary embolism, pneumonia, pneumothorax, pulmonary effusion, anaphylaxis, diabetic ketoacidosis, flailed chest, pulmonary contusion, diaphragmatic rupture, anemia, neuromuscular, this is not meant to be an all-inclusive list. EKG interpreted by me (3pts min.). @ -As above X-rays interpreted by me (1pt min.). @ -[Chest x-ray shows COPD changes CT interpreted by me (1pt min.). @ -None done U/S interpreted by me (1pt. min.). @ -None done What testing was considered but not performed or refused? (CT, X-rays, U/S, labs)? Why? @ -None What meds were considered but not given or refused? Why? @ -None Did you discuss the management of the patient with other professionals (professionals i.e. , PA, LANDSCAPER, lab, RT, psych nurse, licensed clinical social worker, physicist cryogenics, teacher, loss prevention officer, case management director)? Give summary @ -No Was smoking cessation discussed for >3mins.? @ -No Was critical care preformed (if so, how long)? @ -No Were there social determinants of health that impacted care today? How? (Homelessness, low income, unemployed, alcoholism, drug addiction, transportation, low edu. Level, literacy, decrease access to med. care, senior living, rehab)? @ -No Was there de-escalation of care discussed even if they declined (Discuss DNR or withdrawal of care, Hospice)? DNR status @ -No What co-morbidities impacted this encounter? (DM, HTN, Smoking, COPD, CAD, Cancer, CVA, ARF, Chemo, Hep., AIDS, mental health diagnosis, sleep apnea, morbid obesity)? @ -COPD Was patient admitted / discharged? Hospital course, mention meds given and route, prescriptions, significant lab abnormalities, going to OR and other pertinent info. @ -Left AGAINST MEDICAL ADVICE. I did updated patient's on results given chest x-ray, current vitals, and my concerns of hypoxia and increasing dyspnea. I did inform that he is actually in the mid 80s or low 80s when he ambulates and may lead to . Patient refuses to be admitted was explained in detail for a great length of time regarding his condition and concerns. He was evaluated by pace program in the emergency department and he still continues to refuse admission. Patient will be given steroids, albuterol advised to return emergency department immediately. Undiagnosed new problem with uncertain prognosis? @ -No Drug Therapy requiring intensive monitoring for toxicity (Heparin, Nitro, Insulin, Cardizem)? @ -No Were any procedures done? @ -No Diagnosis/symptom? @ -COPD exacerbation, hypoxic, acute respiratory failure Acute, or Chronic, or Acute on Chronic? @ -Acute Uncomplicated (without systemic symptoms) or Complicated (systemic symptoms)? @ -Complicated Side effects of treatment? @ -No Exacerbation, Progression, or Severe Exacerbation? @ -Exacerbation Poses a threat to life or bodily function? How? (Chest pain, USA, [place], pneumonia, PE, COPD, DKA, ARF, appy, cholecystitis, CVA, Diverticulitis, Homicidal, Suicidal, threat to staff... and all critical care pts) @Yes COPD exacerbation, respiratory failure leading to respiratory arrest - Lab Data Result diagrams: 10/25/24 10:50 10/25/24 10:50 Lab Results 10/25/24 10/25/24 10/25/24 Range/Units 10:50 10:50 10:50 WBC 8.39 (4.50-10.00) 10*3/uL RBC 5.06 (4.40-5.60) 10*6/uL Hgb 14.1 (13.0-17.0) g/dL Hct 43.1 (39.6-50.0) % MCV 85.2 (80.0-97.0) fL MCH 27.9 (27.0-32.0) pg MCHC 32.7 (32.0-37.0) g/dL Plt Count 225 (140-440) 10*3/uL MPV 9.0 L (9.5-12.2) fL Immature Gran % (Auto) 0.2 % Neutrophils % 64.4 % Lymphocytes % 23.6 % Monocytes % 8.3 % Eosinophils % 2.3 % Basophils % 1.2 % Immature Gran # 0.02 (0.00-0.04) 10*3/uL Neutrophils # 5.40 (1.80-7.70) 10*3/uL Lymphocytes # 1.98 (0.90-5.00) 10*3/uL Monocytes # 0.70 (0.20-1.00) 10*3/uL Eosinophils # 0.19 (0.04-0.35) 10*3/uL Basophils # 0.10 (0.00-0.10) 10*3/uL PT 10.3 (10.0-12.5) sec INR 0.9 (<1.2) APTT 23.9 (22.0-30.0) sec Sodium 143 (137-145) mmol/L Potassium 3.6 (3.5-5.1) mmol/L Chloride 104 (98-107) mmol/L Carbon Dioxide 30 (22-30) mmol/L Anion Gap 9 mmol/L BUN 25 H (9-20) mg/dL Creatinine 1.26 H (0.66-1.25) mg/dL Est GFR (CKD-EPI)AfAm 65 (>60 ml/min/1.73 sqM) Est GFR (CKD-EPI)NonAf 57 (>60 ml/min/1.73 sqM) Glucose 146 H (74-99) mg/dL Plasma Lactic Acid Jarred (0.7-2.0) mmol/L Calcium 9.2 (8.4-10.2) mg/dL Magnesium 1.8 (1.6-2.3) mg/dL Total Bilirubin 0.6 (0.2-1.3) mg/dL AST 18 (17-59) U/L ALT 16 (4-49) U/L Alkaline Phosphatase 88 (38-126) U/L Troponin I (0.000-0.034) ng/mL NT-Pro-B Natriuret Pep 857 pg/mL Total Protein 7.2 (6.3-8.2) g/dL Albumin 4.0 (3.5-5.0) g/dL Influenza Type A (PCR) (Not Detectd) Influenza Type B (PCR) (Not Detectd) RSV (PCR) (Not Detectd) SARS-CoV-2 (PCR) (Not Detectd) 10/25/24 10/25/24 10/25/24 Range/Units 10:50 10:50 11:13 WBC (4.50-10.00) 10*3/uL RBC (4.40-5.60) 10*6/uL Hgb (13.0-17.0) g/dL Hct (39.6-50.0) % MCV (80.0-97.0) fL MCH (27.0-32.0) pg MCHC (32.0-37.0) g/dL Plt Count (140-440) 10*3/uL MPV (9.5-12.2) fL Immature Gran % (Auto) % Neutrophils % % Lymphocytes % % Monocytes % % Eosinophils % % Basophils % % Immature Gran # (0.00-0.04) 10*3/uL Neutrophils # (1.80-7.70) 10*3/uL Lymphocytes # (0.90-5.00) 10*3/uL Monocytes # (0.20-1.00) 10*3/uL Eosinophils # (0.04-0.35) 10*3/uL Basophils # (0.00-0.10) 10*3/uL PT (10.0-12.5) sec INR (<1.2) APTT (22.0-30.0) sec Sodium (137-145) mmol/L Potassium (3.5-5.1) mmol/L Chloride (98-107) mmol/L Carbon Dioxide (22-30) mmol/L Anion Gap mmol/L BUN (9-20) mg/dL Creatinine (0.66-1.25) mg/dL Est GFR (CKD-EPI)AfAm (>60 ml/min/1.73 sqM) Est GFR (CKD-EPI)NonAf (>60 ml/min/1.73 sqM) Glucose (74-99) mg/dL Plasma Lactic Acid Jarred 0.9 (0.7-2.0) mmol/L Calcium (8.4-10.2) mg/dL Magnesium (1.6-2.3) mg/dL Total Bilirubin (0.2-1.3) mg/dL AST (17-59) U/L ALT (4-49) U/L Alkaline Phosphatase (38-126) U/L Troponin I 0.014 (0.000-0.034) ng/mL NT-Pro-B Natriuret Pep pg/mL Total Protein (6.3-8.2) g/dL Albumin (3.5-5.0) g/dL Influenza Type A (PCR) Not Detected (Not Detectd) Influenza Type B (PCR) Not Detected (Not Detectd) RSV (PCR) Not Detected (Not Detectd) SARS-CoV-2 (PCR) Not Detected (Not Detectd) Disposition Clinical Impression: COPD with exacerbation, Hypoxia, Acute respiratory failure Disposition: LEFT AGAINST MEDICAL ADVICE Prescriptions: predniSONE 50 mg PO DAILY #5 tab Albuterol Inhaler [Ventolin Hfa Inhaler] 1 - 2 puff INHALATION Q6H PRN #1 each PRN Reason: Shortness Of Breath Referrals: [facility],Medicine [NON-STAFF] - 11/01/24 10:15 am (Please bring insurance cards and ID to fill out paperwork prior to your appointment) Forms: [facility] Pamphlet, [facility] [employer] Time of Disposition: 13:39
[2024-10-25 11:34] LABS: NT-Pro-B-Type Natriuretic Pept 857 pg/mL
--- NOTE | 2024-10-25 11:36 | XR ---
EXAMINATION TYPE: XR chest 2V DATE OF EXAM: 10/25/2024 11:31 AM COMPARISON: Chest radiographs from 10/18/2023 TECHNIQUE: XR chest 2V Frontal and lateral views of the chest. CLINICAL INDICATION:Male, 74 years old with history of difficulty breathing; FINDINGS: Lungs/Pleura: There is no evidence of pleural effusion, focal consolidation, or pneumothorax. Pulmonary vascularity: Unremarkable. Heart/mediastinum: Cardiomediastinal silhouette is unremarkable. Musculoskeletal: Multiple level degenerative disc disease changes seen throughout the spine. IMPRESSION: No acute cardiopulmonary disease/process. [facility], , 10/25/2024 11:34 AM
[2024-10-25 11:51] LABS: Influenza A Not Detected (Not Detectd); Influenza B Not Detected (Not Detectd); RSV Not Detected (Not Detectd)
[2024-10-25 12:09] VITALS: BP 180/81; RESP 18
[2024-10-25] MEDS: IPRATROPIUM-ALBUTEROL 3 ML NEB INHALATION STA (12:20)
[2024-10-25 12:31] VITALS: PULSE 58
== END 2024-10-25 13:35 | disposition left against medical advice (07) ==
LOC: EC 10:21
DX: J96.01 Acute respiratory failure with hypoxia (principal); J44.1 Chronic obstructive pulmonary disease with (acute) exacerbation; Z53.29 Procedure and treatment not carried out because of patient's decision for other reasons; Z11.52 Encounter for screening for COVID-19; F17.200 Nicotine dependence, unspecified, uncomplicated
CPT/HCPCS: 36415; 94640; 93005; 83880; 80053; 83605; 83735; 84484; 85025; 85610; 85730; 87636; 71046; 99285; 96374; 96361; J2919

== ENCOUNTER 2024-10-27 09:30 | Emergency (ER) | payer MEDICARE ==
[2024-10-27 09:42] VITALS: RESP 18; TEMP 97.5
[2024-10-27 10:26] LABS: Eosinophils # (A) 0.17 10*3/uL (0.04-0.35); Eosinophils % (A) 1.8 %; HCT 45.6 % (39.6-50.0); HGB 15.3 g/dL (13.0-17.0); Lymphocytes # (A) 2.93 10*3/uL (0.90-5.00); Lymphocytes % (A) 30.4 %; MCH 28.2 pg (27.0-32.0); MCHC 33.6 g/dL (32.0-37.0); Mean Platelet Volume 9.2 fL (9.5-12.2); Monocytes # (A) 0.77 10*3/uL (0.20-1.00); Neutrophils # (A) 5.65 10*3/uL (1.80-7.70); Neutrophils % (A) 58.5 %; Platelet Count 227 10*3/uL (140-440); RBC 5.43 10*6/uL (4.40-5.60); RDW 14.1 % (11.5-14.5); WBC 9.65 10*3/uL (4.50-10.00)
--- NOTE | 2024-10-27 10:36 | XR ---
EXAMINATION TYPE: XR chest 2V DATE OF EXAM: 10/27/2024 10:31 AM COMPARISON: Chest radiographs from 10/25/2024 TECHNIQUE: XR chest 2V Frontal and lateral views of the chest. CLINICAL INDICATION:Male, 74 years old with history of difficulty breathing; FINDINGS: Lungs/Pleura: There is no evidence of pleural effusion, focal consolidation, or pneumothorax. Pulmonary vascularity: Unremarkable. Heart/mediastinum: Cardiomediastinal silhouette is unremarkable. Musculoskeletal: Multiple level degenerative disc disease changes seen throughout the spine. IMPRESSION: No acute cardiopulmonary disease/process. [facility], , 10/27/2024 10:34 AM
[2024-10-27 10:37] LABS: ALT 18 U/L (4-49); AST 21 U/L (17-59); African American GFR (CKD) >90 (>60 ml/min/1.73 sqM); Albumin 4.2 g/dL (3.5-5.0); Alkaline Phosphatase 94 U/L (38-126); Anion Gap 10 mmol/L; Blood Urea Nitrogen 22 mg/dL (9-20); Calcium 9.4 mg/dL (8.4-10.2); Carbon Dioxide 31 mmol/L (22-30); Chloride 102 mmol/L (98-107); Glucose 128 mg/dL (74-99); Non-African American GFR(CKD) 83 (>60 ml/min/1.73 sqM); Potassium 3.9 mmol/L (3.5-5.1); Sodium 143 mmol/L (137-145); Total Bilirubin 0.7 mg/dL (0.2-1.3); Total Protein 7.5 g/dL (6.3-8.2)
[2024-10-27 10:57] LABS: INR 0.9 (<1.2); Partial Thromboplastin Time 23.7 sec (22.0-30.0); Prothrombin Time 10.1 sec (10.0-12.5)
--- NOTE | 2024-10-27 11:28 | ED ---
SOB HPI - General Chief Complaint: Shortness of Breath Stated Complaint: SOB Time Seen by Provider: 10/27/24 09:35 Source: patient Mode of arrival: EMS Limitations: no limitations - History of Present Illness Initial Comments: 74-year-old female with history of CVA, diabetes, tobacco abuse who presents to the emergency department with shortness of breath. Patient seen and evaluated in the department on Friday for same complaint. It was suspected that the patient has COPD. They wanted to hospitalize the patient however patient refused. He was discharged home on an albuterol inhaler and steroids. Patient states he did not get them because he did not know that anything was called into the pharmacy. He continues to smoke. He denies any fevers. No productive cough. No nausea or vomiting. Denies chest pain. No other alleviating, precipitating or modifying factors - Related Data Previous Rx's Medication Instructions Recorded Albuterol Inhaler [Ventolin Hfa 1 - 2 puff INHALATION Q6H PRN #1 10/25/24 Inhaler] each predniSONE 50 mg PO DAILY #5 tab 10/25/24 Allergies Allergy/AdvReac Type Severity Reaction Status Date / Time No Known Allergies Allergy Verified 10/27/24 09:42 Review of Systems ROS Statement: Those systems with pertinent positive or pertinent negative responses have been documented in the HPI. ROS Other: All systems not noted in ROS Statement are negative. Past Medical History Past Medical History: CVA/TIA, Diabetes Mellitus Additional Past Medical History / Comment(s): neuropathy, TB 30 years ago, History of Any Multi-Drug Resistant Organisms: None Reported Past Surgical History: Appendectomy, Back Surgery Additional Past Surgical History / Comment(s): fusion, right great toe amputation, Past Anesthesia/Blood Transfusion Reactions: No Reported Reaction Past Psychological History: Anxiety, Depression Smoking Status: Current every day smoker Past Alcohol Use History: None Reported Past Drug Use History: Marijuana General Exam Limitations: no limitations General appearance: alert, in no apparent distress Head exam: Present: atraumatic, normocephalic, normal inspection Eye exam: Present: normal appearance, PERRL, EOMI. Absent: scleral icterus, c onjunctival injection, periorbital swelling ENT exam: Present: normal exam, mucous membranes moist Neck exam: Present: normal inspection. Absent: tenderness, meningismus, lymphadenopathy Respiratory exam: Present: wheezes, decreased breath sounds. Absent: respiratory distress, rales, rhonchi, stridor Cardiovascular Exam: Present: regular rate, normal rhythm, normal heart sounds. Absent: systolic murmur, diastolic murmur, rubs, gallop, clicks GI/Abdominal exam: Present: soft, normal bowel sounds. Absent: distended, tenderness, guarding, rebound, rigid Extremities exam: Present: normal inspection, full ROM, normal capillary refill. Absent: tenderness, pedal edema, joint swelling, calf tenderness Back exam: Present: normal inspection Neurological exam: Present: alert, oriented X3, CN II-XII intact Psychiatric exam: Present: normal affect, normal mood Skin exam: Present: warm, dry, intact, normal color. Absent: rash Course Vital Signs 10/27/24 10/27/24 10/27/24 09:31 10:52 11:00 Temperature 97.5 F L Pulse Rate 80 73 88 Respiratory 18 18 18 Rate Blood Pressure 204/95 137/79 138/78 O2 Sat by Pulse 98 94 L 98 Oximetry 10/27/24 10/27/24 11:42 11:50 Temperature Pulse Rate 88 88 Respiratory Rate Blood Pressure O2 Sat by Pulse Oximetry Medical Decision Making - Medical Decision Making Was pt. sent in by a medical professional or institution (, PA, INSPECTOR AIR CARRIER, urgent care, hospital, or detention...) When possible be specific @ -No Did you speak to anyone other than the patient for history (EMS, parent, family, police, friend...)? What history was obtained from this source @ -No Did you review nursing and triage notes (agree or disagree)? Why? @ -I reviewed and agree with nursing and triage notes Were old charts reviewed (outside hosp., previous admission, EMS record, old EKG, old radiological studies, urgent care reports/EKG's, detention records)? Report findings @ -I reviewed the ED visit from Friday when it was recommended that the patient be hospitalized Differential Diagnosis (chest pain, altered mental status, abdominal pain women, abdominal pain men, vaginal bleeding, weakness, fever, dyspnea, syncope, headache, dizziness, GI bleed, back pain, seizure, CVA, palpatations, mental health, musculoskeletal)? @ -Differential Dyspnea: Coronary syndrome, arrhythmia, tamponade, asthma, COPD, pulmonary embolism, pneumonia, pneumothorax, pulmonary effusion, anaphylaxis, diabetic ketoacidosis, flailed chest, pulmonary contusion, diaphragmatic rupture, anemia, neuromuscular, this is not meant to be an all-inclusive list. EKG interpreted by me (3pts min.). @ -Yes and demonstrates sinus rhythm with a rate of 71. [place] to 148. QRS 112. QTc of 390. Poor baseline. No acute ST segment elevation X-rays interpreted by me (1pt min.). @ -yes which demonstrates no acute process CT interpreted by me (1pt min.). @ -None done U/S interpreted by me (1pt. min.). @ -None done What testing was considered but not performed or refused? (CT, X-rays, U/S, labs)? Why? @ -IV steroids and DuoNeb's breathing treatments every 4 hours however patient refuses to be admitted to the hospital What meds were considered but not given or refused? Why? @ -None Did you discuss the management of the patient with other professionals (professionals i.e. , PA, INSPECTOR AIR CARRIER, lab, RT, psych nurse, dialysis social worker, supercharger repair supervisor, teacher, privacy officer, case preparer and liner)? Give summary @ -No Was smoking cessation discussed for >3mins.? @ -Yes and patient appears to not be willing Was critical care preformed (if so, how long)? @ -No Were there social determinants of health that impacted care today? How? (Homelessness, low income, unemployed, alcoholism, drug addiction, transpo rtation, low edu. Level, literacy, decrease access to med. care, intermediate, rehab)? @ -No Was there de-escalation of care discussed even if they declined (Discuss DNR or withdrawal of care, Hospice)? DNR status @ -No What co-morbidities impacted this encounter? (DM, HTN, Smoking, COPD, CAD, Cancer, CVA, ARF, Chemo, Hep., AIDS, mental health diagnosis, sleep apnea, morbid obesity)? @ -COPD, nicotine dependence Was patient admitted / discharged? Hospital course, mention meds given and route, prescriptions, significant lab abnormalities, going to OR and other pertinent info. @ -Upon arrival patient seen and evaluated. Thorough history and physical exam was performed. Patient does have diminished breath sounds. Breathing treatment is ordered. Laboratory studies are conducted and chest x-ray was performed. Results are discussed with patient. He feels at this time. He is adamant that he is going home. I did confirm that the patient's medications are at the pharmacy. We do set up home delivery for his medications. He is to use the inhaler every 4 hours and take the steroids as directed. Follow-up with his primary care doctor. Recommend nicotine cessation and return for any new or worsening symptoms Undiagnosed new problem with uncertain prognosis? @ -No Drug Therapy requiring intensive monitoring for toxicity (Heparin, Nitro, Insulin, Cardizem)? @ -No Were any procedures done? @ -No Diagnosis/symptom? @ -Acute COPD exacerbation Acute, or Chronic, or Acute on Chronic? @ -Acute Uncomplicated (without systemic symptoms) or Complicated (systemic symptoms)? @ -Complicated Side effects of treatment? @ -No Exacerbation, Progression, or Severe Exacerbation? @ -Yes Poses a threat to life or bodily function? How? (Chest pain, USA, [place], pneumonia, PE, COPD, DKA, ARF, appy, cholecystitis, CVA, Diverticulitis, Homicidal, Suicidal, threat to staff... and all critical care pts) @ -No - Lab Data Result diagrams: 10/27/24 10:18 10/27/24 10:18 Lab Results 10/27/24 10/27/24 10/27/24 Range/Units 10:18 10:18 10:18 WBC 9.65 (4.50-10.00) 10*3/uL RBC 5.43 (4.40-5.60) 10*6/uL Hgb 15.3 (13.0-17.0) g/dL Hct 45.6 (39.6-50.0) % MCV 84.0 (80.0-97.0) fL MCH 28.2 (27.0-32.0) pg MCHC 33.6 (32.0-37.0) g/dL Plt Count 227 (140-440) 10*3/uL MPV 9.2 L (9.5-12.2) fL Immature Gran % (Auto) 0.3 % Neutrophils % 58.5 % Lymphocytes % 30.4 % Monocytes % 8.0 % Eosinophils % 1.8 % Basophils % 1.0 % Immature Gran # 0.03 (0.00-0.04) 10*3/uL Neutrophils # 5.65 (1.80-7.70) 10*3/uL Lymphocytes # 2.93 (0.90-5.00) 10*3/uL Monocytes # 0.77 (0.20-1.00) 10*3/uL Eosinophils # 0.17 (0.04-0.35) 10*3/uL Basophils # 0.10 (0.00-0.10) 10*3/uL PT 10.1 (10.0-12.5) sec INR 0.9 (<1.2) APTT 23.7 (22.0-30.0) sec Sodium 143 (137-145) mmol/L Potassium 3.9 (3.5-5.1) mmol/L Chloride 102 (98-107) mmol/L Carbon Dioxide 31 H (22-30) mmol/L Anion Gap 10 mmol/L BUN 22 H (9-20) mg/dL Creatinine 0.92 (0.66-1.25) mg/dL Est GFR (CKD-EPI)AfAm >90 (>60 ml/min/1.73 sqM) Est GFR (CKD-EPI)NonAf 83 (>60 ml/min/1.73 sqM) Glucose 128 H (74-99) mg/dL Plasma Lactic Acid Jarred (0.7-2.0) mmol/L Calcium 9.4 (8.4-10.2) mg/dL Total Bilirubin 0.7 (0.2-1.3) mg/dL AST 21 (17-59) U/L ALT 18 (4-49) U/L Alkaline Phosphatase 94 (38-126) U/L Troponin I (0.000-0.034) ng/mL Total Protein 7.5 (6.3-8.2) g/dL Albumin 4.2 (3.5-5.0) g/dL 10/27/24 10/27/24 Range/Units 10:18 10:18 WBC (4.50-10.00) 10*3/uL RBC (4.40-5.60) 10*6/uL Hgb (13.0-17.0) g/dL Hct (39.6-50.0) % MCV (80.0-97.0) fL MCH (27.0-32.0) pg MCHC (32.0-37.0) g/dL Plt Count (140-440) 10*3/uL MPV (9.5-12.2) fL Immature Gran % (Auto) % Neutrophils % % Lymphocytes % % Monocytes % % Eosinophils % % Basophils % % Immature Gran # (0.00-0.04) 10*3/uL Neutrophils # (1.80-7.70) 10*3/uL Lymphocytes # (0.90-5.00) 10*3/uL Monocytes # (0.20-1.00) 10*3/uL Eosinophils # (0.04-0.35) 10*3/uL Basophils # (0.00-0.10) 10*3/uL PT (10.0-12.5) sec INR (<1.2) APTT (22.0-30.0) sec Sodium (137-145) mmol/L Potassium (3.5-5.1) mmol/L Chloride (98-107) mmol/L Carbon Dioxide (22-30) mmol/L Anion Gap mmol/L BUN (9-20) mg/dL Creatinine (0.66-1.25) mg/dL Est GFR (CKD-EPI)AfAm (>60 ml/min/1.73 sqM) Est GFR (CKD-EPI)NonAf (>60 ml/min/1.73 sqM) Glucose (74-99) mg/dL Plasma Lactic Acid Jarred 1.5 (0.7-2.0) mmol/L Calcium (8.4-10.2) mg/dL Total Bilirubin (0.2-1.3) mg/dL AST (17-59) U/L ALT (4-49) U/L Alkaline Phosphatase (38-126) U/L Troponin I 0.014 (0.000-0.034) ng/mL Total Protein (6.3-8.2) g/dL Albumin (3.5-5.0) g/dL Disposition Clinical Impression: COPD with exacerbation Disposition: HOME SELF-CARE Condition: Stable Instructions (If sedation given, give patient instructions): COPD (Chronic Obstructive Pulmonary Disease) (ED) Additional Instructions: Please use the inhaler and steroids that were prescribed on Friday. We did call the pharmacy to have them deliver them to your house. Return for any new or worsening symptoms If you hve any questions regrding your medications, please contact [facility] in [facility] at . You are able to contact them to request delivery of your medications. Is patient prescribed a controlled substance at d/c from ED?: No Referrals: None,Stated [Primary Care Provider] - 1-2 days Forms: [facility] Pamphlet, Area [facility] Time of Disposition: 11:31
[2024-10-27 11:37] VITALS: BP 138/78; PULSE 88
[2024-10-27] MEDS: methylPREDNISolone SOD SUCCI 125 MG/2 ML VIAL IV STA (11:41)
[2024-10-27] MEDS: IPRATROPIUM-ALBUTEROL 3 ML NEB INHALATION STA (11:42)
== END 2024-10-27 11:58 | disposition home or self-care (01) ==
LOC: EC 09:30
DX: J44.1 Chronic obstructive pulmonary disease with (acute) exacerbation (principal); F17.200 Nicotine dependence, unspecified, uncomplicated; Z86.73 Personal history of transient ischemic attack (TIA), and cerebral infarction without residual deficits
CPT/HCPCS: 36415; 94640; 93005; 80053; 83605; 84484; 85025; 85610; 85730; 71046; 99285; 96374; J2919

== ENCOUNTER 2024-11-09 08:34 | Emergency (ER) | payer MEDICARE ==
[2024-11-09 08:43] VITALS: BP 196/88; PULSE 92; RESP 20; TEMP 98.4
--- NOTE | 2024-11-09 08:50 | ED ---
General Adult HPI - General Chief complaint: Shortness of Breath Stated complaint: DANGELO Time Seen by Provider: 11/09/24 08:35 Source: patient, EMS, RN notes reviewed Mode of arrival: EMS Limitations: no limitations - History of Present Illness Initial comments: Patient is a 74-year-old male present to the emergency department with concerns with difficulty breathing. Patient does carry diagnosis of COPD. Patient is still in the process of discontinuing smoking. Patient states his inhaler ran out. Patient states he is trying to get set up with [facility] and they were supposed to come out yesterday. Patient states he is not able to fill the prescription and requested inhaler. Patient received nebulizer by EMS and is symptom-free at this time. Patient denies any fever or upper respiratory symptoms. - Related Data Previous Rx's Medication Instructions Recorded Albuterol Inhaler [Ventolin Hfa 1 - 2 puff INHALATION Q6H PRN #1 10/25/24 Inhaler] each predniSONE 50 mg PO DAILY #5 tab 10/25/24 Allergies Allergy/AdvReac Type Severity Reaction Status Date / Time No Known Allergies Allergy Verified 11/09/24 08:43 Review of Systems ROS Statement: Those systems with pertinent positive or pertinent negative responses have been documented in the HPI. ROS Other: All systems not noted in ROS Statement are negative. Constitutional: Denies: fever, chills Eyes: Denies: eye pain ENT: Denies: congestion Respiratory: Reports: as per HPI, wheezes Cardiovascular: Denies: chest pain Endocrine: Denies: fatigue Gastrointestinal: Denies: abdominal pain Musculoskeletal: Denies: back pain Past Medical History Past Medical History: COPD, CVA/TIA, Diabetes Mellitus Additional Past Medical History / Comment(s): neuropathy, TB 30 years ago, History of Any Multi-Drug Resistant Organisms: None Reported Past Surgical History: Appendectomy, Back Surgery Additional Past Surgical History / Comment(s): fusion, right great toe amputation, Past Anesthesia/Blood Transfusion Reactions: No Reported Reaction Past Psychological History: Anxiety, Depression Smoking Status: Current every day smoker Past Alcohol Use History: None Reported Past Drug Use History: Marijuana General Exam Limitations: no limitations General appearance: alert, in no apparent distress Head exam: Present: normocephalic Eye exam: Present: normal appearance Neck exam: Present: normal inspection Respiratory exam: Present: normal lung sounds bilaterally. Absent: respiratory distress, wheezes Cardiovascular Exam: Present: regular rate, normal rhythm GI/Abdominal exam: Present: soft. Absent: tenderness Extremities exam: Present: normal inspection. Absent: pedal edema, calf tenderness Neurological exam: Present: alert Psychiatric exam: Present: normal affect, normal mood Skin exam: Present: normal color Course Vital Signs 11/09/24 08:35 Temperature 98.4 F Pulse Rate 92 Respiratory 20 Rate Blood Pressure 196/88 O2 Sat by Pulse 97 Oximetry Medical Decision Making - Medical Decision Making I discussed smoking cessation for greater than 3 minutes. The risks of smoking were discussed with the patient including but not limited to wrist of cancer, stroke, coronary artery disease, and COPD. Also discussed with the patient were multiple methods of quitting smoking. Lastly, we discussed the financial cost of smoking. Was pt. sent in by a medical professional or institution (, PA, TRANSIT DRIVER, urgent care, hospital, or intermediate...) When possible be specific @ -No Did you speak to anyone other than the patient for history (EMS, parent, family, police, friend...)? What history was obtained from this source @ -No Did you review nursing and triage notes (agree or disagree)? Why? @ -I reviewed and agree with nursing and triage notes Were old charts reviewed (outside hosp., previous admission, EMS record, old EKG, old radiological studies, urgent care reports/EKG's, intermediate records)? Report findings @ -No old charts were reviewed Differential Diagnosis (chest pain, altered mental status, abdominal pain women, abdominal pain men, vaginal bleeding, weakness, fever, dyspnea, syncope, headache, dizziness, GI bleed, back pain, seizure, CVA, palpatations, mental health, musculoskeletal)? @ -Differential Dyspnea: Coronary syndrome, arrhythmia, tamponade, asthma, COPD, pulmonary embolism, pneumonia, pneumothorax, pulmonary effusion, anaphylaxis, diabetic ketoacidosis, flailed chest, pulmonary contusion, diaphragmatic rupture, anemia, neuromuscular, this is not meant to be an all-inclusive list. EKG interpreted by me (3pts min.). @ -As above X-rays interpreted by me (1pt min.). @ -None done CT interpreted by me (1pt min.). @ -None done U/S interpreted by me (1pt. min.). @ -None done What testing was considered but not performed or refused? (CT, X-rays, U/S, labs)? Why? @ -None What meds were considered but not given or refused? Why? @ -None Did you discuss the management of the patient with other professionals (professionals i.e. , PA, TRANSIT DRIVER, lab, RT, psych nurse, social security benefits interviewer, cold roller, teacher, campus police officer, shelter case manager)? Give summary @ -roundhouse worker Emma who will make contact with paty to help ensure patient receives further care and prescription coverage as well as prescriptions Was smoking cessation discussed for >3mins.? @ -I discussed smoking cessation for greater than 3 minutes. The risk of smoking were discussed with the patient including but not limited to risks of cancer, stroke, coronary artery disease and COPD. Also discussed with patient were multiple methods of quitting smoking. Lastly we discussed the financial cost of smoking. Was critical care preformed (if so, how long)? @ -No Were there social determinants of health that impacted care today? How? (Homelessness, low income, unemployed, alcoholism, drug addiction, transportation, low edu. Level, literacy, decrease access to med. care, nursing home, rehab)? @ -No Was there de-escalation of care discussed even if they declined (Discuss DNR or withdrawal of care, Hospice)? DNR status @ -No What co-morbidities impacted this encounter? (DM, HTN, Smoking, COPD, CAD, Can cer, CVA, ARF, Chemo, Hep., AIDS, mental health diagnosis, sleep apnea, morbid obesity)? @ -None Was patient admitted / discharged? Hospital course, mention meds given and route, prescriptions, significant lab abnormalities, going to OR and other pertinent info. @ -Patient presents with wheezing resolved with nebulizer consistent with history of COPD. Patient symptom-free on arrival. Lungs are clear. Patient will be discharged for follow-up Undiagnosed new problem with uncertain prognosis? @ -No Drug Therapy requiring intensive monitoring for toxicity (Heparin, Nitro, Insulin, Cardizem)? @ -No Were any procedures done? @ -No Diagnosis/symptom? @ -COPD Acute, or Chronic, or Acute on Chronic? @ -Acute Uncomplicated (without systemic symptoms) or Complicated (systemic symptoms)? @ -Default Side effects of treatment? @ -No Exacerbation, Progression, or Severe Exacerbation? @ -Exacerbation Poses a threat to life or bodily function? How? (Chest pain, [place], [place], pneumonia, PE, COPD, DKA, ARF, appy, cholecystitis, CVA, Diverticulitis, Homicidal, Suicidal, threat to staff... and all critical care pts) @ -No Disposition Clinical Impression: Acute exacerbation of chronic obstructive pulmonary disease Disposition: HOME SELF-CARE Condition: Stable Instructions (If sedation given, give patient instructions): COPD (Chronic Obstructive Pulmonary Disease) (ED) Additional Instructions: Please follow-up today with [facility]. Return for fevers, difficulty breathing, congestion, pain, worsening or changing symptoms or other concerns. Inhaler to take home with you. Is patient prescribed a controlled substance at d/c from ED?: No Referrals: None,Stated [Primary Care Provider] - 1-2 days Paul Barajas MD [REFERRING] - 1-2 days Time of Disposition: 08:50
[2024-11-09] MEDS: ALBUTEROL HFA INHALER INHALATION STA (08:58)
== END 2024-11-09 09:05 | disposition home or self-care (01) ==
LOC: EC 08:34
DX: J44.1 Chronic obstructive pulmonary disease with (acute) exacerbation (principal); F17.200 Nicotine dependence, unspecified, uncomplicated
CPT/HCPCS: 94640; 99285

== ENCOUNTER 2024-11-12 17:26 | Emergency (ER) | payer MEDICARE ==
--- NOTE | 2024-11-12 18:00 | ED ---
General Adult HPI - General Chief complaint: Shortness of Breath Stated complaint: DANGELO Time Seen by Provider: 11/12/24 17:32 Source: patient, EMS, RN notes reviewed Mode of arrival: EMS Limitations: no limitations - History of Present Illness Initial comments: Patient is a 74-year-old male present to the emergency department with difficulty breathing. Patient has history of COPD. Patient was here recently and use of the inhaler and has done it again. Patient questions if he is using it too much and admits to feeling anxious. Patient had nebulizer out by EMS with resolution of his symptoms. Patient is currently symptom-free and has no complaints. Patient is in the process of getting set up with the [facility]. Patient is still working on insurance coverage and does not feel a prescription will be filled. Patient does have an appointment beginning of the month. - Related Data Previous Rx's Medication Instructions Recorded RX: Albuterol Inhaler [Ventolin 1 - 2 puff INHALATION Q6H PRN #1 10/25/24 Hfa Inhaler] each RX: predniSONE 50 mg PO DAILY #5 tab 10/25/24 Allergies Allergy/AdvReac Type Severity Reaction Status Date / Time No Known Allergies Allergy Verified 11/12/24 17:35 Review of Systems ROS Statement: Those systems with pertinent positive or pertinent negative responses have been documented in the HPI. ROS Other: All systems not noted in ROS Statement are negative. Constitutional: Denies: fever Eyes: Denies: eye pain Respiratory: Reports: as per HPI Cardiovascular: Denies: chest pain Endocrine: Denies: fatigue Gastrointestinal: Denies: abdominal pain Past Medical History Past Medical History: COPD, CVA/TIA, Diabetes Mellitus Additional Past Medical History / Comment(s): neuropathy, TB 30 years ago, History of Any Multi-Drug Resistant Organisms: None Reported Past Surgical History: Appendectomy, Back Surgery Additional Past Surgical History / Comment(s): fusion, right great toe amputation, Past Anesthesia/Blood Transfusion Reactions: No Reported Reaction Past Psychological History: Anxiety, Depression Smoking Status: Current every day smoker Past Alcohol Use History: None Reported Past Drug Use History: Marijuana General Exam Limitations: no limitations General appearance: alert, in no apparent distress Head exam: Present: normocephalic Eye exam: Present: normal appearance Neck exam: Present: normal inspection Respiratory exam: Present: normal lung sounds bilaterally. Absent: respiratory distress, wheezes, decreased breath sounds Cardiovascular Exam: Present: regular rate, normal rhythm GI/Abdominal exam: Present: soft. Absent: tenderness Extremities exam: Present: normal inspection. Absent: pedal edema, calf tenderness Neurological exam: Present: alert Psychiatric exam: Present: normal affect, normal mood Skin exam: Present: normal color Course Vital Signs 11/12/24 17:31 Temperature 98.1 F Pulse Rate 78 Respiratory 24 Rate Blood Pressure 177/73 O2 Sat by Pulse 98 Oximetry Medical Decision Making - Medical Decision Making MDM was pt. sent in by a medical professional or institution (, [facility], SERVICE CENTER SPECIALIST, urgent care, hospital, or long-term...) When possible be specific @ -No Did you speak to anyone other than the patient for history (EMS, parent, family, police, friend...)? What history was obtained from this source @ -No Did you review nursing and triage notes (agree or disagree)? Why? @ -I reviewed and agree with nursing and triage notes Were old charts reviewed (outside hosp., previous admission, EMS record, old EKG, old radiological studies, urgent care reports/EKG's, long-term records)? Report findings @ -No old charts were reviewed Differential Diagnosis (chest pain, altered mental status, abdominal pain women, abdominal pain men, vaginal bleeding, weakness, fever, dyspnea, syncope, headache, dizziness, GI bleed, back pain, seizure, CVA, palpatations, mental health, musculoskeletal)? @ -Differential Dyspnea: Coronary syndrome, arrhythmia, tamponade, asthma, COPD, pulmonary embolism, pneumonia, pneumothorax, pulmonary effusion, anaphylaxis, diabetic ketoacidosis, flailed chest, pulmonary contusion, diaphragmatic rupture, anemia, ne uromuscular, this is not meant to be an all-inclusive list. EKG interpreted by me (3pts min.). @ -As above X-rays interpreted by me (1pt min.). @ -None done CT interpreted by me (1pt min.). @ -None done U/S interpreted by me (1pt. min.). @ -None done What testing was considered but not performed or refused? (CT, X-rays, U/S, labs)? Why? @ -None What meds were considered but not given or refused? Why? @ -None Did you discuss the management of the patient with other professionals (professionals i.e. , PA, SERVICE CENTER SPECIALIST, lab, RT, psych nurse, hospital social worker, specialty manufacturing supervisor, teacher, branch officer, case resolution specialist)? Give summary @ -No Was smoking cessation discussed for >3mins.? @ -No Was critical care preformed (if so, how long)? @ -No Were there social determinants of health that impacted care today? How? (Homelessness, low income, unemployed, alcoholism, drug addiction, transportation, low edu. Level, literacy, decrease access to med. care, senior care, rehab)? @ -No Was there de-escalation of care discussed even if they declined (Discuss DNR or withdrawal of care, Hospice)? DNR status @ -No What co-morbidities impacted this encounter? (DM, HTN, Smoking, COPD, CAD, Cancer, CVA, ARF, Chemo, Hep., AIDS, mental health diagnosis, sleep apnea, morbid obesity)? @ -History of COPD Was patient admitted / discharged? Hospital course, mention meds given and route, prescriptions, significant lab abnormalities, going to OR and other pertinent info. @ -Patient presents with dyspnea consistent with history of COPD and has run out of his inhaler again. Patient is feeling he is using it too much. Long discussion with patient regarding this and patient is advised normally he should be using it only every 4-6 hours. Patient does demonstrate agreement. Patient does have follow-up set up already and will continue to keep his appointment. Undiagnosed new problem with uncertain prognosis? @ -No Drug Therapy requiring intensive monitoring for toxicity (Heparin, Nitro, Insulin, Cardizem)? @ -No Were any procedures done? @ -No Diagnosis/symptom? @ -COPD Acute, or Chronic, or Acute on Chronic? @ -Acute on chronic Uncomplicated (without systemic symptoms) or Complicated (systemic symptoms)? @ -Default Side effects of treatment? @ -No Exacerbation, Progression, or Severe Exacerbation? @ -No Poses a threat to life or bodily function? How? (Chest pain, [place], [place], pneumonia, PE, COPD, DKA, ARF, appy, cholecystitis, CVA, Diverticulitis, Homicidal, Suicidal, threat to staff... and all critical care pts) @ -No Disposition Clinical Impression: Acute exacerbation of chronic obstructive pulmonary disease Disposition: HOME SELF-CARE Condition: Stable Instructions (If sedation given, give patient instructions): COPD (Chronic Obstructive Pulmonary Disease) (ED) Additional Instructions: Please do follow-up with your new doctor beginning of the month as planned. Return for fever, difficulty breathing, worsening or changing symptoms or other concerns. Please try to only use your inhaler 2 puffs every 4-6 hours as needed. Is patient prescribed a controlled substance at d/c from ED?: No Referrals: None,Stated [Primary Care Provider] - 1-2 days Paul Barajas MD [REFERRING] - 1-2 days Time of Disposition: 18:00
[2024-11-12] MEDS: ALBUTEROL HFA INHALER INHALATION STA (18:16)
[2024-11-12 18:41] VITALS: BP 142/82; PULSE 72; RESP 18; TEMP 98
== END 2024-11-12 18:41 | disposition home or self-care (01) ==
LOC: EC 17:26
DX: J44.1 Chronic obstructive pulmonary disease with (acute) exacerbation (principal); F17.200 Nicotine dependence, unspecified, uncomplicated; Z86.73 Personal history of transient ischemic attack (TIA), and cerebral infarction without residual deficits
CPT/HCPCS: 94640; 99284